=== PATIENT | male | born 1930 | race Caucasian/White ===

== ENCOUNTER 2021-06-12 10:05 | Inpatient (IN) ==
[2021-06-12] MEDS ORDERED: LIDOCAINE 2% URO-JET 10 ML JEL.PF.APP UR ONE (10:29)
[2021-06-12] MEDS ORDERED: 0.9 % SODIUM CHLORIDE 1,000 ML IV ONE (10:29)
--- NOTE | 2021-06-12 11:22 | XRay Report ---
INDICATION: weak TECHNIQUE: AP portable semiupright chest x-ray COMPARISON: None FINDINGS: Lungs:Bilateral pulmonary parenchymal infiltrates. Focal infiltrates at both lung bases, left worse than right. There is a focal parenchymal density in the right lung apex. Findings are nonspecific but atypical pneumonia including covid pneumonia are likely. Follow-up radiographs recommended. Heart, vascular:No significant cardiomegaly. Pulmonary vascularity is normal. No pulmonary edema or pulmonary congestion Mediastinum, lauren:No mediastinal widening. No hilar mass Pleura:No pleural fluid. No pleural-based mass or calcification Skeletal:Negative. IMPRESSION: Bilateral pulmonary parenchymal infiltrates consistent with pneumonia. Covid pneumonia is possible Interpreted and Authenticated by: Marquis Iglesias 06/12/21
[2021-06-12 11:29] LABS: ALT/SGPT 10 U/L (<40); AST/SGOT 15 U/L (<40); Albumin 4.1 gm/dL (3.2-5.2); Albumin/Globulin Ratio 1.4 (1.0-2.3); Alkaline Phosphatase 91 U/L (39-117); Bilirubin,Total 0.9 mg/dL (0.1-1.0); Blood Urea Nitrogen 18 mg/dL (8-23); Calcium 9.1 mg/dL (8.6-10.4); Carbon Dioxide 22 mmol/L (22-30); Chloride 105 mmol/L (96-108); Globulin 2.9 gm/dL (2.2-3.7); Glomerular Filtration Rate 44; Glucose 119 mg/dL (70-105)
[2021-06-12 12:22] LABS: Basophils # (Auto) 0.07 K/mcL (0.00-0.30); Basophils % (Auto) 0.8 % (0.0-2.0); Eosinophils # (Auto) 0.29 K/mcL (0.00-0.70); Eosinophils % (Auto) 3.5 % (0.0-7.0); Hematocrit 49.2 % (40.1-51.0); Hemoglobin 17.6 g/dL (13.7-17.5); Lymphocytes # (Auto) 2.65 K/mcL (1.50-4.80); Lymphocytes % (Auto) 31.9 % (15.5-49.0); Mean Cell Volume 92.7 fL (80.0-100.0); Mean Corpuscular HGB Conc 35.8 g/dL (31.0-36.0); Mean Platelet Volume 10.2 fL (7.4-10.4); Monocytes # (Auto) 0.59 K/mcL (0.10-0.90); Monocytes % (Auto) 7.1 % (1.0-12.0); Neutrophils % (Auto) 56.7 % (38.0-78.0); Platelet Count 253 K/mcL (140-440); RBC 5.31 M/mcL (4.63-6.08); Red Cell Distribution Width 13.2 % (11.5-14.5); WBC 8.3 K/mcL (4.5-11.0)
[2021-06-12 12:37] LABS: Appearance,Urine CLEAR (Clear); Bilirubin,Urine Negative (Negative); Color,Urine YELLOW; Culture Indicated,Urine yes; Glucose,Urine (UA) Negative (Negative); Ketones,Urine 5 mg/dL (Negative); Leukocyte Esterase,Urine 25 /uL (Negative); Mucus,Urine FEW /hpf; Nitrate,Urine Negative (Negative); Protein,Urine Negative (Negative); Specific Gravity,Urine 1.017 (1.000-1.035); Urine Blood Negative (Negative); Urine RBC 4 /hpf (0-3); Urine Squamous Epithelial Cell < 1 /hpf (0-4); Urine Transitional Epi Cells < 1 /hpf (0-2); Urine WBC 18 /hpf (0-4); Urobilinogen,Urine Negative
[2021-06-12] MEDS ORDERED: cefTRIAXone 1 GM VIAL IV ONE (12:47)
[2021-06-12] MEDS ORDERED: DOXYCYCLINE 100 MG in DEXTROSE 5% IN WATER 100 ML IV ONE (13:00)
--- NOTE | 2021-06-12 14:12 | Internal Med History&Physical ---
HPI History of Present Illness Patient information: Note initiated : 06/12/21 at 2:07 pm Service Date, if different from initiated Date: [] Patient: Raymond Darnell a 89 y/o M admitted on for UTI w/ increased weakness. Chief Complaint: [weakness] History of present illness: Mr. 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 noticed patient to have cloudy urine on June 08, 2021. As a result, she brought him to PCP office where he was being diagnosed with urinary tract infections and was being discharged home with prescriptions of ciprofloxacin. Yesterday patient's developed general body weakness to the point that he was not able to ambulate and become bedbound. Earlier this morning he also developed some nonproductive cough. also noticed that patient developed episode of tonic-clonic seizures last for about 15 seconds this weekend. He denies any shortness of breath otherwise. He also had fever but denies any shaking chills or diaphoresis. There is no GI symptoms such as nausea, vomiting, diarrhea, or constipation's. Patient is currently denies any dysuria or change in urinary frequency or urgency. Vital signs at ED presentations are within normal limits. Labs significant for lack of leukocytosis with WBC 8.3. Lactic acid 1.0. Urinalysis suggest the presence of urinary tract infections. Chest x-ray showing bilateral pulmonary parenchymal infiltrates consistent with pneumonia. Constitutional Constitutional: Present fever(s) and weakness; Absent chills, excessive sweating and fatigue EENT Eyes: Absent blurry vision, change in vision, loss of vision and other visual disturbances Ears: Absent decreased hearing and tinnitus Nose, mouth and throat: Absent abnormal hearing, dry mouth, headache(s), nasal congestion and sore throat Cardiovascular Cardiovascular: Absent chest pain, chest pain at rest, edema, irregular heart rh ythm and palpatations Respiratory Respiratory: Present cough; Absent dyspnea and wheezing Gastrointestinal Gastrointestinal: Absent abdominal pain, constipation, diarrhea, nausea and vomiting Musculoskeletal Musculoskeletal: Absent back pain, deformity, limited range of motion, muscle cramps, muscle weakness and numbness Integumentary Integumentary: Absent lesions, rash and wounds Neurological Neurological: Absent focal weakness, headache(s) and numbness Additional comments: seizure Psychiatric Psychiatric: Absent anxiety, depression and hallucinations PFSH PFSH All Active Problems (Updated 06/12/21 @ 14:11 by Dion Mcfadden MD) Community acquired pneumonia (Acute) UTI (urinary tract infection) (Acute) Seizure (Acute) SJS-TEN overlap syndrome (Acute) YESY (acute kidney injury) (Acute) Weakness (Acute) Chronic anticoagulation (Chronic) Grand mal seizure (Acute) Brain lesion (Acute) Brain edema (Acute) CKD (chronic kidney disease) stage 3, GFR 30-59 ml/min (Chronic) TIA (transient ischemic attack) (Acute) Leukocytosis (Acute) Polycythemia (Acute) Tachycardia (Acute) Hypertensive renal disease (Chronic ~1960) Hyponatremia (Chronic) Chronic kidney disease, stage III (moderate) (Chronic) Vertigo (Acute) History of skin cancer (Acute) Screening for colon cancer (Acute) Rhinitis, allergic (Acute) Renal insufficiency (Acute) Memory loss (Acute) Knee pain (Acute) Hypertension, essential (Chronic) Hypercholesterolemia (Acute) GERD (gastroesophageal reflux disease) (Acute) Gastritis, acute (Acute) BPH (benign prostatic hypertrophy) with urinary obstruction (Acute) Anxiety disorder (Acute) Medical History (Updated 06/12/21 @ 14:11 by Dion Mcfadden MD) Anxiety disorder BPH (benign prostatic hypertrophy) with urinary obstruction Chronic anticoagulation Eliquis; due to DVT and PE. Chronic kidney disease, stage III (moderate) Gastritis, acute GERD (gastroesophageal reflux disease) History of skin cancer Left face Hypercholesterolemia Hypertension, essential Goal BP 130/80 Hypertensive renal disease (~1960) Goal BP 130/80 Hyponatremia mild hyponatremia while on HCTZ Na at 134 improved to 140 Will monitor for now Knee pain Right Leukocytosis 05/31/2015 - Dr. Zavala Memory loss Polycythemia Renal insufficiency Rhinitis, allergic Tachycardia 05/31/2015 - Dr. Zavala TIA (transient ischemic attack) Vertigo Surgical History (Updated 06/02/21 @ 16:00 by Karen Malin) History of colonoscopy (03/13/14) [facility] History of hernia repair Hernia repair left and right many years ago History of knee replacement History of prostate surgery History of tonsillectomy Family History (Updated 06/02/21 @ 16:02 by Karen Malin) Mother , at 97 Family history of hypertension Father , 97 Pneumonia Sister Family history of hypertension Social History (Updated 06/02/21 @ 16:02 by Karen Malin) marital status: occupational status: retired smoking status: Never smoker alcohol intake frequency: does not drink substance use type: does not use MEDS/ALLERGIES Home Medications and Allergies Home Medications Medication Instructions Recorded Confirmed Type amlodipine 10 mg tablet 10 mg PO QDAY 02/15/16 06/08/21 History tamsulosin 0.4 mg capsule 0.4 mg PO Q24H 05/17/16 06/08/21 History B-complex with vitamin C 1 tab-cap PO QDAY 08/09/16 06/08/21 History apixaban 2.5 mg tablet 2.5 mg PO BID tab 11/06/16 06/08/21 History cholecalciferol (vitamin D3) 25 1,000 unit PO QDAY cap 11/06/16 06/08/21 History mcg (1,000 unit) capsule magnesium oxide 400 mg (241.3 mg 400 mg PO QDAY 11/06/16 06/08/21 History magnesium) tablet ketoconazole 2 % topical cream 1 applic TOPICAL QDAY PRN 12/06/17 06/08/21 History lorazepam 0.5 mg tablet 0.5 mg PO QHS PRN 05/01/19 06/08/21 History melatonin 10 mg capsule 10 mg PO HS PRN 07/29/19 06/08/21 History paroxetine HCl 10 mg tablet 10 mg PO QDAY 07/29/19 06/08/21 History famotidine 20 mg tablet 20 mg PO BID tab 03/29/21 06/08/21 History fexofenadine 180 mg tablet 180 mg PO Q24H 03/29/21 06/08/21 History metoprolol tartrate 50 mg tablet See Rx Instructions .ROUTE 03/29/21 06/08/21 History .COMPLEX tab ciprofloxacin HCl 500 mg tablet 500 mg PO BID 5 Days #10 tab 06/08/21 06/08/21 Rx Allergies Allergy/AdvReac Type Severity Reaction Status Date / Time carbamazepine Allergy Severe Seizure Verified 06/12/21 10:07 lacosamide [From Vimpat] Allergy Severe Seizure Verified 06/12/21 10:07 levetiracetam Allergy Severe Seizure Verified 06/12/21 10:07 sulfamethoxazole Allergy Severe Rogelio Verified 06/12/21 10:07 [From Bactrim] Diego Syndrome trimethoprim [From Bactrim] Allergy Severe Rogelio Verified 06/12/21 10:07 Diego Syndrome Penicillins Allergy Unknown Unknown Verified 06/12/21 10:07 lamotrigine AdvReac Severe SJ Syndrome Verified 06/12/21 10:07 EXAM Constitutional Vitals: Temp Pulse Resp BP Pulse Ox 37.2 C 62 16 148/73 96 06/12/21 10:07 06/12/21 12:48 06/12/21 13:41 06/12/21 13:41 06/12/21 13:41 DATA Data Completed and Pending Labs: Labs from last 24 hours 06/12/21 06/12/21 06/12/21 11:28 11:08 10:40 WBC RBC Hgb Hct MCV MCH MCHC RDW Plt Count MPV Neut % (Auto) Lymph % (Auto) [place] % (Auto) Eos % (Auto) Baso % (Auto) Lymph # (Auto) [place] # (Auto) Eos # (Auto) Baso # (Auto) Absolute Neutrophils VBG Lactic Acid 1.0 Sodium Potassium Chloride Carbon Dioxide Anion Gap BUN Creatinine GFR Calculation Glucose Calcium Total Bilirubin AST ALT Alkaline Phosphatase Troponin T Total Protein Albumin Globulin Albumin/Globulin Ratio Procalcitonin Pending Urine Color Yellow Urine Appearance Clear Urine pH 5.0 Ur Specific Carm[place] 1.017 Urine Protein Negative Urine Glucose (UA) Negative Urine Ketones 5 A Urine Occult Blood Negative Urine Nitrate Negative Urine Bilirubin Negative Urine Urobilinogen Negative Ur Leukocyte Esterase 25 A Urine RBC 4 H Urine WBC 18 H Ur Squamous Epith Cells < 1 Ur Transition Epith Cell < 1 Urine Bacteria None Urine Mucus Few A Ur Culture Indicated? yes 06/12/21 06/12/21 06/12/21 10:40 10:40 10:40 WBC 8.3 RBC 5.31 Hgb 17.6 H Hct 49.2 MCV 92.7 MCH 33.1 MCHC 35.8 RDW 13.2 Plt Count 253 MPV 10.2 Neut % (Auto) 56.7 Lymph % (Auto) 31.9 [place] % (Auto) 7.1 Eos % (Auto) 3.5 Baso % (Auto) 0.8 Lymph # (Auto) 2.65 [place] # (Auto) 0.59 Eos # (Auto) 0.29 Baso # (Auto) 0.07 Absolute Neutrophils 4.71 VBG Lactic Acid Sodium 143 Potassium 3.7 Chloride 105 Carbon Dioxide 22 Anion Gap 16.0 BUN 18 Creatinine 1.4 H GFR Calculation 44 Glucose 119 H Calcium 9.1 Total Bilirubin 0.9 AST 15 ALT 10 Alkaline Phosphatase 91 Troponin T < 0.01 Total Protein 7.0 Albumin 4.1 Globulin 2.9 Albumin/Globulin Ratio 1.4 Procalcitonin Urine Color Urine Appearance Urine pH Ur Specific [place] Urine Protein Urine Glucose (UA) Urine Ketones Urine Occult Blood Urine Nitrate Urine Bilirubin Urine Urobilinogen Ur Leukocyte Esterase Urine RBC Urine WBC Ur Squamous Epith Cells Ur Transition Epith Cell Urine Bacteria Urine Mucus Ur Culture Indicated? A/P Assessment and plan (1) Weakness: Status: Acute (2) Chronic anticoagulation: Status: Chronic Comment: Eliquis; due to DVT and PE. (3) CKD (chronic kidney disease) stage 3, GFR 30-59 ml/min: Status: Chronic Comment: Combo of HTN and vascular disease most likely Qualifiers: Chronic kidney disease stage 3 subtype: stage 3a (GFR 45-59) Qualified Code(s): N18.31 - Chronic kidney disease, stage 3a (4) Hypertension, essential: Status: Chronic Comment: Goal BP 130/80 (5) GERD (gastroesophageal reflux disease): Status: Acute (6) Anxiety disorder: Status: Acute (7) BPH (benign prostatic hypertrophy) with urinary obstruction: Status: Acute (8) Seizure: Status: Acute (9) UTI (urinary tract infection): Status: Acute (10) Community acquired pneumonia: Status: Acute Narrative A/P Narrative: Assessment and plan: 1. General body weakness secondary to community-acquired pneumonia and urinary tract infections: Observation MedSurg Okay to saline lock Serial lactic acid Procalcitonin Blood culture Urine culture CBC with auto differential in the morning to trend WBC Rocephin Zithromax Tylenol as needed fever Robitussin-DM as needed cough DuoNeb nebulizer as needed wheezing Physical therapy evaluation and treatment Occupational Therapy evaluation and treatment #2 history of seizure disorder: Right does not want patient on any long-term antiepileptic therapy at this moment Ativan IV as needed seizure activities Seizure precaution Treat any seizure triggers such as infections, see #1 #3 essential hypertension: Currently normotensive Continue home regimen of oral antihypertensive including amlodipine and beta- jacqui #4 history of chronic kidney disease stage III: Current serum creatinine level at baseline Okay to saline lock CMP in the morning to trend kidney functions 5. Anxiety disorder: Continue paroxetine Continue home regiment of oral Ativan at night as needed for anxiety #6 BPH: Continue Flomax #7 on chronic anticoagulation therapy secondary to history of DVT and PE: Continue Eliquis 8. GERD: Continue famotidine GI prophylaxis: Continue famotidine DVT prophylaxis: Eliquis CODE STATUS: Full code Prognosis: Stable Dispositions: Observation MedSurg Time Spent With Patient Time: Total time spent is greater than 50% in coordination of care (as documented) at patient's floor/unit and/or counseling patient: Total time spent with greater than 50% in coordination of care (as documented) at patient's floor/unit and/or counseling patient:: Greater than 35 minutes
--- NOTE | 2021-06-12 14:34 | Emergency Department Note ---
HPI General Chief complaint: Weakness Stated complaint: UTI w/ increased weakness Time Seen by Provider: 06/12/21 10:26 Source: family and EMS Mode of arrival: EMS Limitations: no limitations History of Present Illness HPI Narrative: Narrative: 89-year-old male with history of seizures, meningioma, chronic kidney disease, hypertension, hyperlipidemia presents from home with family for evaluation of suspected urinary tract infection with progressive weakness over the past 4 days. He started ciprofloxacin 4 days ago for this after having appearance of concentrated and proteinaceous urine which was sent for urinalysis by his primary care physician. They do not have culture results. They deny any fever or chills. He denies headache or dizziness. He denies chest pain or pressure or shortness of breath. He denies abdominal pain nausea or flank pain. He denies dysuria. He has had some mild nonproductive cough which started today Related Data Home Medications Medication Instructions Recorded Confirmed amlodipine 10 mg tablet 10 mg PO QDAY 02/15/16 06/08/21 tamsulosin 0.4 mg capsule 0.4 mg PO Q24H 05/17/16 06/08/21 B-complex with vitamin C 1 tab-cap PO QDAY 08/09/16 06/08/21 apixaban 2.5 mg tablet 2.5 mg PO BID tab 11/06/16 06/08/21 cholecalciferol (vitamin D3) 25 1,000 unit PO QDAY cap 11/06/16 06/08/21 mcg (1,000 unit) capsule magnesium oxide 400 mg (241.3 mg 400 mg PO QDAY 11/06/16 06/08/21 magnesium) tablet ketoconazole 2 % topical cream 1 applic TOPICAL QDAY PRN 12/06/17 06/08/21 lorazepam 0.5 mg tablet 0.5 mg PO QHS PRN 05/01/19 06/08/21 melatonin 10 mg capsule 10 mg PO HS PRN 07/29/19 06/08/21 paroxetine HCl 10 mg tablet 10 mg PO QDAY 07/29/19 06/08/21 famotidine 20 mg tablet 20 mg PO BID tab 03/29/21 06/08/21 fexofenadine 180 mg tablet 180 mg PO Q24H 03/29/21 06/08/21 metoprolol tartrate 50 mg tablet See Rx Instructions .ROUTE 03/29/21 06/08/21 .COMPLEX tab Previous Rx's Medication Instructions Recorded ciprofloxacin HCl 500 mg tablet 500 mg PO BID 5 Days #10 tab 06/08/21 Allergies Allergy/AdvReac Type Severity Reaction Status Date / Time carbamazepine Allergy Severe Seizure Verified 06/12/21 10:07 lacosamide [From Vimpat] Allergy Severe Seizure Verified 06/12/21 10:07 levetiracetam Allergy Severe Seizure Verified 06/12/21 10:07 sulfamethoxazole Allergy Severe Rogelio Verified 06/12/21 10:07 [From Bactrim] Diego Syndrome trimethoprim [From Bactrim] Allergy Severe Rogelio Verified 06/12/21 10:07 Diego Syndrome Penicillins Allergy Unknown Unknown Verified 06/12/21 10:07 lamotrigine AdvReac Severe SJ Syndrome Verified 06/12/21 10:07 Review of Systems ROS ROS Narrative: Narrative: All systems ED: reviewed and negative except as stated. PFSH Narrative Patient History Narrative: Narrative: Medical/Surgical/Family History All Active Problems (Updated 06/12/21 @ 14:33 by Félix Andre DO) Weakness (Acute) Community acquired pneumonia (Acute) UTI (urinary tract infection) (Acute) Seizure (Acute) SJS-TEN overlap syndrome (Acute) YESY (acute kidney injury) (Acute) Weakness (Acute) Chronic anticoagulation (Chronic) Grand mal seizure (Acute) Brain lesion (Acute) Brain edema (Acute) CKD (chronic kidney disease) stage 3, GFR 30-59 ml/min (Chronic) TIA (transient ischemic attack) (Acute) Leukocytosis (Acute) Polycythemia (Acute) Tachycardia (Acute) Hypertensive renal disease (Chronic ~1960) Hyponatremia (Chronic) Chronic kidney disease, stage III (moderate) (Chronic) Vertigo (Acute) History of skin cancer (Acute) Screening for colon cancer (Acute) Rhinitis, allergic (Acute) Renal insufficiency (Acute) Memory loss (Acute) Knee pain (Acute) Hypertension, essential (Chronic) Hypercholesterolemia (Acute) GERD (gastroesophageal reflux disease) (Acute) Gastritis, acute (Acute) BPH (benign prostatic hypertrophy) with urinary obstruction (Acute) Anxiety disorder (Acute) Medical History Anxiety disorder BPH (benign prostatic hypertrophy) with urinary obstruction Chronic anticoagulation Eliquis; due to DVT and PE. Chronic kidney disease, stage III (moderate) Gastritis, acute GERD (gastroesophageal reflux disease) History of skin cancer Left face Hypercholesterolemia Hypertension, essential Goal BP 130/80 Hypertensive renal disease (~1960) Goal BP 130/80 Hyponatremia mild hyponatremia while on HCTZ Na at 134 improved to 140 Will monitor for now Knee pain Right Leukocytosis 05/31/2015 - Dr. Zavala Memory loss Polycythemia Renal insufficiency Rhinitis, allergic Tachycardia 05/31/2015 - Dr. Zavala TIA (transient ischemic attack) Vertigo Surgical History History of colonoscopy (03/13/14) HP History of hernia repair Hernia repair left and right many years ago History of knee replacement History of prostate surgery History of tonsillectomy Family History Mother , at 97 Family history of hypertension Father , 97 Pneumonia Sister Family history of hypertension Social History Smoking Status: Never smoker Alcohol Intake Frequency: does not drink Substance Use: does not use Exam Narrative Narrative: Narrative: General Limitations: no limitations General appearance: Present alert, in no apparent distress and sleepy; Absent lethargic Head Head: Present atraumatic and normocephalic Eye Eye: Present normal appearance and EOMI ENT ENT: Present mucous membranes dry; Absent nasal congestion Neck Neck: Present normal inspection and full ROM Chest Chest: Present normal inspection and symmetric chest wall rise Respiratory Respiratory: Present normal lung sounds bilaterally Cardiovascular Cardiovascular: Present regular rate and normal rhythm Adbominal Abdominal: Present soft; Absent tenderness Extremities Extremities: Present normal inspection and full ROM Neurological Neurological: Present alert, oriented X3 and normal gait Psychiatric Psychiatric: Present normal affect and normal mood Skin Skin: Present warm (WNL) and dry Course Vital Signs Vital signs: Vital Signs Pulse Rate 59 L 06/12/21 10:05 Blood Pressure 142/64 06/12/21 10:05 Pulse Oximetry (%) 95 06/12/21 10:05 Temperature 98.9 F 06/12/21 10:07 Pulse Rate 62 06/12/21 12:48 Respiratory Rate 16 06/12/21 13:41 Blood Pressure 148/73 06/12/21 13:41 Pulse Oximetry (%) 96 06/12/21 13:41 MDM MDM Narrative Medical decision making narrative: Narrative: Patient with generalized weakness, on Cipro for the past 4 days, presumed infectious cause from possible urinary tract infection. Culture was available and reviewed did not show definite acute infection. He has not had other definite urinary symptoms. His main complaint is profound weakness significantly different from his baseline when he normally walks with assistance. He has chest x-ray evidence of possible pneumonia. This is associated with cough today. Likely this is partially treated infection and I believe he will benefit from observation for continued fluids and monitoring, transition to p.o. antibiotic, physical therapy evaluation. He does not have any focal deficits at this time concerning for stroke. His NIH stroke scale is 0, he does have mildly slurred speech but his family member reports that this is baseline. He does not have lab abnormalities or vital signs concerning for sepsis Lab Data Result diagrams: 06/12/21 10:40 06/12/21 10:40 Labs: Lab Results 06/12/21 06/12/21 06/12/21 Range/Units 10:40 10:40 10:40 WBC 8.3 (4.5-11.0) K/mcL RBC 5.31 (4.63-6.08) M/mcL Hgb 17.6 H (13.7-17.5) g/dL Hct 49.2 (40.1-51.0) % MCV 92.7 (80.0-100.0) fL MCH 33.1 (26.0-34.0) pg MCHC 35.8 (31.0-36.0) g/dL RDW 13.2 (11.5-14.5) % Plt Count 253 (140-440) K/mcL MPV 10.2 (7.4-10.4) fL Neut % (Auto) 56.7 (38.0-78.0) % Lymph % (Auto) 31.9 (15.5-49.0) % Bent % (Auto) 7.1 (1.0-12.0) % Eos % (Auto) 3.5 (0.0-7.0) % Baso % (Auto) 0.8 (0.0-2.0) % Lymph # (Auto) 2.65 (1.50-4.80) K/mcL Bent # (Auto) 0.59 (0.10-0.90) K/mcL Eos # (Auto) 0.29 (0.00-0.70) K/mcL Baso # (Auto) 0.07 (0.00-0.30) K/mcL Absolute Neutrophils 4.71 (1.80-8.00) K/mcL VBG Lactic Acid (0.5-2.0) mmol/L Sodium 143 (133-145) mmol/L Potassium 3.7 (3.3-5.1) mmol/L Chloride 105 (96-108) mmol/L Carbon Dioxide 22 (22-30) mmol/L Anion Gap 16.0 (8.0-16.0) BUN 18 (8-23) mg/dL Creatinine 1.4 H (0.7-1.2) mg/dL GFR Calculation 44 Glucose 119 H (70-105) mg/dL Calcium 9.1 (8.6-10.4) mg/dL Total Bilirubin 0.9 (0.1-1.0) mg/dL AST 15 (<40) U/L ALT 10 (<40) U/L Alkaline Phosphatase 91 (39-117) U/L Troponin T < 0.01 (<0.03) ng/mL Total Protein 7.0 (5.9-8.4) gm/dL Albumin 4.1 (3.2-5.2) gm/dL Globulin 2.9 (2.2-3.7) gm/dL Albumin/Globulin Ratio 1.4 (1.0-2.3) Procalcitonin (<0.10) ng/mL Urine Color Urine Appearance (Clear) Urine pH (5.0-9.0) Ur Specific [place] (1.000-1.035) Urine Protein (Negative) mg/dL Urine Glucose (UA) (Negative) mg/dL Urine Ketones (Negative) mg/dL Urine Occult Blood (Negative) mg/dL Urine Nitrate (Negative) Urine Bilirubin (Negative) mg/dL Urine Urobilinogen mg/dL Ur Leukocyte Esterase (Negative) /uL Urine RBC (0-3) /hpf Urine WBC (0-4) /hpf Ur Squamous Epith Cells (0-4) /hpf Ur Transition Epith Cell (0-2) /hpf Urine Bacteria (0) /hpf Urine Mucus (None) /hpf Ur Culture Indicated? 06/12/21 06/12/21 06/12/21 Range/Units 10:40 11:08 11:28 WBC (4.5-11.0) K/mcL RBC (4.63-6.08) M/mcL Hgb (13.7-17.5) g/dL Hct (40.1-51.0) % MCV (80.0-100.0) fL MCH (26.0-34.0) pg MCHC (31.0-36.0) g/dL RDW (11.5-14.5) % Plt Count (140-440) K/mcL MPV (7.4-10.4) fL Neut % (Auto) (38.0-78.0) % Lymph % (Auto) (15.5-49.0) % Bent % (Auto) (1.0-12.0) % Eos % (Auto) (0.0-7.0) % Baso % (Auto) (0.0-2.0) % Lymph # (Auto) (1.50-4.80) K/mcL Bent # (Auto) (0.10-0.90) K/mcL Eos # (Auto) (0.00-0.70) K/mcL Baso # (Auto) (0.00-0.30) K/mcL Absolute Neutrophils (1.80-8.00) K/mcL VBG Lactic Acid 1.0 (0.5-2.0) mmol/L Sodium (133-145) mmol/L Potassium (3.3-5.1) mmol/L Chloride (96-108) mmol/L Carbon Dioxide (22-30) mmol/L Anion Gap (8.0-16.0) BUN (8-23) mg/dL Creatinine (0.7-1.2) mg/dL GFR Calculation Glucose (70-105) mg/dL Calcium (8.6-10.4) mg/dL Total Bilirubin (0.1-1.0) mg/dL AST (<40) U/L ALT (<40) U/L Alkaline Phosphatase (39-117) U/L Troponin T (<0.03) ng/mL Total Protein (5.9-8.4) gm/dL Albumin (3.2-5.2) gm/dL Globulin (2.2-3.7) gm/dL Albumin/Globulin Ratio (1.0-2.3) Procalcitonin 0.08 (<0.10) ng/mL Urine Color Yellow Urine Appearance Clear (Clear) Urine pH 5.0 (5.0-9.0) Ur Specific [place] 1.017 (1.000-1.035) Urine Protein Negative (Negative) mg/dL Urine Glucose (UA) Negative (Negative) mg/dL Urine Ketones 5 A (Negative) mg/dL Urine Occult Blood Negative (Negative) mg/dL Urine Nitrate Negative (Negative) Urine Bilirubin Negative (Negative) mg/dL Urine Urobilinogen Negative mg/dL Ur Leukocyte Esterase 25 A (Negative) /uL Urine RBC 4 H (0-3) /hpf Urine WBC 18 H (0-4) /hpf Ur Squamous Epith Cells < 1 (0-4) /hpf Ur Transition Epith Cell < 1 (0-2) /hpf Urine Bacteria None (0) /hpf Urine Mucus Few A (None) /hpf Ur Culture Indicated? yes ED POC Tests ED POC Tests: LYSSA - SARS Antigen Negative EKG Data EKG #1: EKG attestation: Yes I reviewed and interpreted this EKG. EKG results narrative: Sinus rhythm at a rate of 60. Normal axis. QTC 425. No acute ST-T changes. Normal EKG. Discharge Plan Patient/Caregiver Discharge Instructions Pt seen by SUPERINTENDENT QUARRY/PA only: No Clinical Impression: Weakness, Community acquired pneumonia, UTI (urinary tract infection) Patient Disposition: Xfer As Inpt ([facility]) Follow up with: Raffi Randolph MD [Primary Care Provider] - Prescriptions: No Action ciprofloxacin HCl 500 mg tablet 500 mg PO BID 5 Days Qty: 10 RF: 0 amlodipine 10 mg tablet 10 mg PO QDAY RF: 0 tamsulosin [Flomax] 0.4 mg capsule,extended release 24hr 0.4 mg PO Q24H RF: 0 B-complex with vitamin C capsule 1 tab-cap PO QDAY RF: 0 apixaban [Eliquis] 2.5 mg tablet 2.5 mg PO BID RF: 0 cholecalciferol (vitamin D3) 1,000 unit capsule 1,000 unit PO QDAY RF: 0 magnesium oxide 400 mg tablet 400 mg PO QDAY RF: 0 ketoconazole 2 % cream 1 applic TOPICAL QDAY PRNRF: 0 lorazepam 0.5 mg tablet 0.5 mg PO QHS PRNRF: 0 metoprolol tartrate 50 mg tablet See Rx Instructions .ROUTE .COMPLEX RF: 0 melatonin 10 mg capsule 10 mg PO HS PRNRF: 0 paroxetine HCl 10 mg tablet 10 mg PO QDAY RF: 0 famotidine 20 mg tablet 20 mg PO BID RF: 0 fexofenadine [Elly Allergy] 180 mg tablet 180 mg PO Q24H RF: 0
[2021-06-12] MEDS ORDERED: cefTRIAXone 1 GM in DEXTROSE 5% IN WATER 50 ML IV SCH (15:14)
[2021-06-12] MEDS ORDERED: FEXOFENADINE 180 MG TABLET PO SCH (15:14)
[2021-06-12] MEDS ORDERED: ONDANSETRON 4 MG/2 ML VIAL IV PRN (15:14)
[2021-06-12] MEDS ORDERED: TAMSULOSIN 0.4 MG CAPSULE PO SCH (15:14)
[2021-06-12] MEDS ORDERED: IPRATROPIUM/ALBUTEROL 3 ML AMPUL.NEB NEB PRN (15:14)
[2021-06-12] MEDS ORDERED: guaiFENesin/DEXTROMETHORPHAN ORAL SOL PO PRN (15:14)
[2021-06-12] MEDS ORDERED: KETOCONAZOLE 2% TOP CRM 15GM TUBE TOPICAL PRN (15:14)
[2021-06-12] MEDS ORDERED: LORazepam 2 MG/ML VIAL IV PRN (15:14)
[2021-06-12] MEDS ORDERED: ACETAMINOPHEN 325 MG TABLET PO PRN (15:14)
[2021-06-12] MEDS ORDERED: LORazepam 0.5 MG TABLET PO PRN (15:14)
[2021-06-12] MEDS: 0.9 % SODIUM CHLORIDE 10 ML SYRINGE IV SCH ×2 (15:48→20:40)
[2021-06-12] MEDS: AZITHROMYCIN 500 MG in DEXTROSE 5% IN WATER 250 ML IV SCH (15:48)
[2021-06-12] MEDS: MELATONIN 3 MG TABLET PO PRN (20:38)
[2021-06-12] MEDS: APIXABAN 5 MG TABLET PO SCH (20:39)
[2021-06-12] MEDS: FAMOTIDINE 20 MG TABLET PO SCH (20:39)
[2021-06-12] MEDS: METOPROLOL TARTRATE 25 MG TABLET PO SCH (20:40)
[2021-06-12] MEDS: SENNOSIDES 1 TABLET PO SCH (20:40)
[2021-06-12] MEDS: DOCUSATE SODIUM 100 MG CAPSULE PO SCH (20:40)
[2021-06-13] MEDS: 0.9 % SODIUM CHLORIDE 10 ML SYRINGE IV SCH ×3 (05:24→21:59)
[2021-06-13 07:17] LABS: Basophils # (Auto) 0.06 K/mcL (0.00-0.30); Basophils % (Auto) 0.6 % (0.0-2.0); Eosinophils # (Auto) 0.12 K/mcL (0.00-0.70); Eosinophils % (Auto) 1.1 % (0.0-7.0); Hematocrit 51.8 % (40.1-51.0); Hemoglobin 17.9 g/dL (13.7-17.5); Lymphocytes # (Auto) 2.35 K/mcL (1.50-4.80); Lymphocytes % (Auto) 21.6 % (15.5-49.0); Mean Cell Volume 92.7 fL (80.0-100.0); Mean Corpuscular HGB Conc 34.6 g/dL (31.0-36.0); Mean Platelet Volume 10.1 fL (7.4-10.4); Monocytes # (Auto) 0.62 K/mcL (0.10-0.90); Monocytes % (Auto) 5.7 % (1.0-12.0); Platelet Count 261 K/mcL (140-440); RBC 5.59 M/mcL (4.63-6.08); Red Cell Distribution Width 12.8 % (11.5-14.5); WBC 10.9 K/mcL (4.5-11.0)
[2021-06-13 07:48] LABS: ALT/SGPT 9 U/L (<40); AST/SGOT 17 U/L (<40); Albumin/Globulin Ratio 1.3 (1.0-2.3); Alkaline Phosphatase 92 U/L (39-117); Bilirubin,Total 0.7 mg/dL (0.1-1.0); Blood Urea Nitrogen 13 mg/dL (8-23); Calcium 9.4 mg/dL (8.6-10.4); Carbon Dioxide 20 mmol/L (22-30); Chloride 105 mmol/L (96-108); Globulin 3.1 gm/dL (2.2-3.7); Glomerular Filtration Rate 59; Glucose 154 mg/dL (70-105)
[2021-06-13] MEDS: VITAMIN B COMPLEX 1 CAPSULE PO SCH ×2 (08:00→09:59)
[2021-06-13] MEDS: cefTRIAXone 1 GM VIAL IV SCH (08:00)
[2021-06-13] MEDS: METOPROLOL TARTRATE 50 MG TABLET PO SCH (08:01)
[2021-06-13] MEDS: amLODIPine 10 MG TABLET PO SCH (08:01)
[2021-06-13] MEDS: PARoxetine 20 MG TABLET PO SCH (08:01)
[2021-06-13] MEDS: APIXABAN 5 MG TABLET PO SCH ×2 (08:02→21:57)
[2021-06-13] MEDS: FAMOTIDINE 20 MG TABLET PO SCH ×2 (08:03→21:58)
--- NOTE | 2021-06-13 09:09 | EKG ---
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
[2021-06-13] MEDS: MAGNESIUM OXIDE 400 MG TABLET PO SCH (09:59)
[2021-06-13] MEDS: DOCUSATE SODIUM 100 MG CAPSULE PO SCH ×2 (09:59→21:59)
[2021-06-13] MEDS: AZITHROMYCIN 500 MG in DEXTROSE 5% IN WATER 250 ML IV SCH (10:21)
--- NOTE | 2021-06-13 11:21 | Internal Med Progress Note ---
SUBJECTIVE Subjective Patient information: Note initiated : 06/13/21 at 11:16 am Service Date, if different from initiated Date: [] Patient: Raymond Darnell 89 y/o M admitted on 06/12/21 for UTI w/ increased weakness. Chief Complaint: [UTI, pneumonia, weakness] Interval history: History of present illness: Mr. 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 noticed patient to have cloudy urine on June 08, 2021. As a result, she brought him to PCP office where he was being diagnosed with urinary tract infections and was being discharged home with prescriptions of ciprofloxacin. Yesterday patient's developed general body weakness to the point that he was not able to ambulate and become bedbound. Earlier this morning he also developed some nonproductive cough. also noticed that patient developed episode of tonic-clonic seizures last for about 15 seconds this weekend. He denies any shortness of breath otherwise. He also had fever but denies any shaking chills or diaphoresis. There is no GI symptoms such as nausea, vomiting, diarrhea, or constipation's. Patient is currently denies any dysuria or change in urinary frequency or urgency. Vital signs at ED presentations are within normal limits. Labs significant for lack of leukocytosis with WBC 8.3. Lactic acid 1.0. Urinalysis suggest the presence of urinary tract infections. Chest x-ray showing bilateral pulmonary parenchymal infiltrates consistent with pneumonia. 06/13: Afebrile overnight. Tolerating room air. Been ambulating with walker with physical therapist. Blood and urine cultures no growth to date. Mild SOB. c/o nonproductive cough. Denies fever or chills. No seizures activities. Denies urinary symptoms such as dysuria. Constitutional Vitals: Vital Signs Temp Pulse Resp BP Pulse Ox 36.7 C 87 22 159/81 91 06/13/21 08:00 06/13/21 08:00 06/13/21 08:00 06/13/21 08:00 06/13/21 08:00 Period Temp Pulse Resp BP Sys/Gale Pulse Ox Last 24 Hr 36.3 C-36.7 C 60-92 12- 126-159/47-90 91-96 Intake and Output 06/12/21 06/13/21 06/13/21 21:59 05:59 13:59 Intake Total 250 100 Output Total 2 Balance 250 98 Weight 75.041 kg Intake & Output: Intake & Output 06/12/21 06/13/21 06/13/21 21:59 05:59 13:59 Intake Total 250 100 Output Total 2 Balance 250 98 Weight 75.041 kg Intake: IV 250 Zithromax 500 mg In Dextrose 5% 250 in Water 250 ml @ 250 mls/hr IV Q24H [facility] Rx#:[id number] Oral 0 100 Output: # of times incontinent of urine 2 Other: Stool Size Large Stool Color Brown Stool Consistency Soft # of times incontinent of 1 Bowels General appearance: cooperative and no acute distress Exam: Frequent passing out dozing off and snoring during interview and examination Head Head exam: Present atraumatic and normocephalic Eye Eye exam: Present EOMI and scleral icterus; Absent PERRL ENT ENT exam: Present mucous membranes moist, normal exam and normal external ear exam Neck Neck exam: Present normal inspection; Absent lymphadenopathy, tenderness and thyromegaly Respiratory Respiratory exam: Absent accessory muscle use, respiratory distress and wheezes Cardiovascular Cardiovascular exam: Present normal rate and rhythm; Absent JVD GI/Abdominal GI/Abdominal exam: Present normal bowel sounds and soft; Absent organomegaly and tenderness Rectal Rectal exam: Present deferred Extremities Exam Extremities exam: Present normal capillary refill; Absent full ROM, normal inspection and tenderness Additional comments: bilateral upper extremities contracture Neurological Exam Neurological exam: Present alert, CN II-XII intact, motor sensory deficit and oriented X3 Psychiatric Psychiatric exam: Present normal affect and normal mood; Absent anxious and depressed Skin Skin exam: Present dry and intact OBJ DATA Labs CBC & Chem 7: 06/13/21 05:57 06/13/21 05:57 Labs: Abnormal Lab Results 06/13/21 06/13/21 06/12/21 05:57 05:57 11:28 Hgb 17.9 H Hct 51.8 H Carbon Dioxide 20 L Creatinine Glucose 154 H Urine Ketones 5 A Ur Leukocyte Esterase 25 A Urine RBC 4 H Urine WBC 18 H Urine Mucus Few A 06/12/21 06/12/21 10:40 10:40 Hgb 17.6 H Hct Carbon Dioxide Creatinine 1.4 H Glucose 119 H Urine Ketones Ur Leukocyte Esterase Urine RBC Urine WBC Urine Mucus Meds: Medications Acetaminophen (Acetaminophen 325 Mg Tablet) 650 mg PO Q6HP PRN; Protocol PRN Reason: Per Pain Protocol/Fever > 101 Albuterol/Ipratropium (Ipratropium/Albuterol 3 Ml Ampul.Neb) 3 ml NEB Q4HRT PRN PRN Reason: Wheezing Amlodipine Besylate (Amlodipine 10 Mg Tablet) 10 mg PO QDAY [facility] Last Admin: 06/13/21 08:01 Dose: 10 mg Documented by: Apixaban (Apixaban 5 Mg Tablet) 2.5 mg PO BID [facility] Last Admin: 06/13/21 08:02 Dose: 2.5 mg Documented by: Ceftriaxone Sodium (Ceftriaxone 1 Gm Vial) 1 gm IV Q24H [facility] Last Admin: 06/13/21 08:00 Dose: 1 gm Documented by: Docusate Sodium (Docusate Sodium 100 Mg Capsule) 100 mg PO BID [facility] Last Admin: 06/13/21 09:59 Dose: Not Given Documented by: Famotidine (Famotidine 20 Mg Tablet) 20 mg PO BID [facility] Last Admin: 06/13/21 08:03 Dose: 20 mg Documented by: Fexofenadine HCl (Fexofenadine 180 Mg Tablet) 180 mg PO Q24H [facility] Last Admin: 06/12/21 15:48 Dose: 180 mg Documented by: Fluorometholone (Fluorometholone 5 Ml Drops.Susp) 1 ml OP BID [facility] Guaifenesin (Guaifenesin/Dextromethorphan Oral Harriett) 10 ml PO Q4HP PRN PRN Reason: Cough Azithromycin 500 mg/ Dextrose 250 mls @ 250 mls/hr IV Q24H [facility]; Protocol Stop: 06/14/21 16:59 Last Admin: 06/13/21 10:21 Dose: 250 mls/hr Documented by: Ketoconazole (Ketoconazole 2% Top Crm 15gm Tube) 1 dose TOPICAL DAILYP PRN PRN Reason: Itching Lorazepam (Lorazepam 0.5 Mg Tablet) 0.5 mg PO QHS PRN PRN Reason: Anxiety Lorazepam (Lorazepam 2 Mg/Ml Vial) 2 mg IV Q1HP PRN PRN Reason: Seizure Activity Magnesium Oxide (Magnesium Oxide 400 Mg Tablet) 400 mg PO QDAY [facility] Last Admin: 06/13/21 09:59 Dose: Not Given Documented by: Melatonin (Melatonin 3 Mg Tablet) 9 mg PO HSP PRN PRN Reason: Sleep Last Admin: 06/12/21 20:38 Dose: 9 mg Documented by: Metoprolol Tartrate (Metoprolol Tartrate 50 Mg Tablet) 50 mg PO DAILY [facility] Last Admin: 06/13/21 08:01 Dose: 50 mg Documented by: Metoprolol Tartrate (Metoprolol Tartrate 25 Mg Tablet) 25 mg PO HS [facility] Last Admin: 06/12/21 20:40 Dose: 25 mg Documented by: Neomycin/Polymyxin/Dexamethasone (Valentino/Polymyx B Sulf/Dexameth 1 Ribbon Oint.Ophth) 1 ribbon OU TID [facility] Ondansetron HCl (Ondansetron 4 Mg/2 Ml Vial) 4 mg IV Q6HP PRN PRN Reason: Nausea And Vomiting Paroxetine HCl (Paroxetine 20 Mg Tablet) 10 mg PO DAILY [facility] Last Admin: 06/13/21 08:01 Dose: 10 mg Documented by: Cyclosporine [ Restasis] 0.05 % Dropperette 1 dose OU Q12H [facility] Pneumococcal Polyvalent Vaccine (Pneumococcal 23-Rani P-Sac Vac 0.5 Ml Syringe) 0.5 ml IM .ONCE ONE Stop: 06/14/21 10:01 Senna (Sennosides 1 Tablet) 2 tab PO [facility] Last Admin: 06/12/21 20:40 Dose: Not Given Documented by: Sodium Chloride (0.9 % Sodium Chloride 10 Ml Syringe) 10 ml IV Q8 [facility] Last Admin: 06/13/21 05:24 Dose: 10 ml Documented by: Tamsulosin HCl (Tamsulosin 0.4 Mg Capsule) 0.4 mg PO Q24H [facility] Last Admin: 06/12/21 15:48 Dose: 0.4 mg Documented by: Vitamin B Complex (Vitamin B Complex 1 Capsule) 1 cap PO DAILY [facility] Last Admin: 06/13/21 09:59 Dose: Not Given Documented by: Vitamin D (Vitamin D3 1,000 Unit Tablet) 1,000 unit PO DAILY [facility] A/P Assessment and plan (1) Weakness: Status: Acute (2) Chronic anticoagulation: Status: Chronic Comment: Eliquis; due to DVT and PE. (3) CKD (chronic kidney disease) stage 3, GFR 30-59 ml/min: Status: Chronic Comment: Combo of HTN and vascular disease most likely Qualifiers: Chronic kidney disease stage 3 subtype: stage 3a (GFR 45-59) Qualified Code(s): N18.31 - Chronic kidney disease, stage 3a (4) Hypertension, essential: Status: Chronic Comment: Goal BP 130/80 (5) GERD (gastroesophageal reflux disease): Status: Acute (6) Anxiety disorder: Status: Acute (7) BPH (benign prostatic hypertrophy) with urinary obstruction: Status: Acute (8) Seizure: Status: Acute (9) UTI (urinary tract infection): Status: Acute (10) Community acquired pneumonia: Status: Acute (11) MICHELLE (obstructive sleep apnea): Status: Acute Narrative A/P Narrative: Assessment and plan: 1. General body weakness secondary to community-acquired pneumonia and urinary tract infections: Observation MedSurg Okay to saline lock Serial lactic acid Procalcitonin Blood culture, no growth to date Urine culture, no growth to date CBC with auto differential in the morning to trend WBC Rocephin Zithromax Tylenol as needed fever Robitussin-DM as needed cough DuoNeb nebulizer as needed wheezing Physical therapy evaluation and treatment Occupational Therapy evaluation and treatment Speech therapy evaluation and treatment #2 history of seizure disorder: Right does not want patient on any long-term antiepileptic therapy at this moment Ativan IV as needed seizure activities Seizure precaution Treat any seizure triggers such as infections, see #1 #3 essential hypertension: Currently normotensive Continue home regimen of oral antihypertensive including amlodipine and beta- jacqui #4 history of chronic kidney disease stage III: Current serum creatinine level at baseline Okay to saline lock CMP in the morning to trend kidney functions 5. Anxiety disorder: Continue paroxetine Continue home regiment of oral Ativan at night as needed for anxiety #6 BPH: Continue Flomax #7 on chronic anticoagulation therapy secondary to history of DVT and PE: Continue Eliquis 8. GERD: Continue famotidine 9. MICHELLE: CPAP at night or while sleeping Need a new outpatient sleep study GI prophylaxis: Continue famotidine DVT prophylaxis: Eliquis CODE STATUS: DNI DNR Prognosis: Stable Dispositions: Observation MedSurg Time Spent With Patient Time: Total time spent is greater than 50% in coordination of care (as documented) at patient's floor/unit and/or counseling patient:
[2021-06-13] MEDS: TAMSULOSIN 0.4 MG CAPSULE PO SCH (14:52)
[2021-06-13] MEDS: FEXOFENADINE 180 MG TABLET PO SCH (14:52)
[2021-06-13] MEDS: NEO/POLYMYX B SULF/DEXAMETH 1 RIBBON OINT.OPHTH OU SCH ×2 (16:49→21:58)
[2021-06-13] MEDS: MELATONIN 3 MG TABLET PO PRN (21:57)
[2021-06-13] MEDS: FLUOROMETHOLONE 5 ML DROPS.SUSP OP SCH (21:58)
[2021-06-13] MEDS: Cyclosporine [Restasis] 0.05 % Dropperette OU SCH (21:58)
[2021-06-13] MEDS: METOPROLOL TARTRATE 25 MG TABLET PO SCH (21:58)
[2021-06-13] MEDS: SENNOSIDES 1 TABLET PO SCH (21:59)
[2021-06-14] MEDS: 0.9 % SODIUM CHLORIDE 10 ML SYRINGE IV SCH ×3 (05:26→20:01)
[2021-06-14 07:45] LABS: Basophils # (Auto) 0.06 K/mcL (0.00-0.30); Basophils % (Auto) 0.7 % (0.0-2.0); Eosinophils # (Auto) 0.38 K/mcL (0.00-0.70); Eosinophils % (Auto) 4.2 % (0.0-7.0); Hematocrit 45.1 % (40.1-51.0); Hemoglobin 15.5 g/dL (13.7-17.5); Lymphocytes # (Auto) 2.95 K/mcL (1.50-4.80); Lymphocytes % (Auto) 32.5 % (15.5-49.0); Mean Cell Volume 94.4 fL (80.0-100.0); Mean Corpuscular HGB Conc 34.4 g/dL (31.0-36.0); Mean Platelet Volume 10.2 fL (7.4-10.4); Monocytes # (Auto) 0.79 K/mcL (0.10-0.90); Monocytes % (Auto) 8.7 % (1.0-12.0); Neutrophils % (Auto) 53.9 % (38.0-78.0); Platelet Count 250 K/mcL (140-440); RBC 4.78 M/mcL (4.63-6.08); Red Cell Distribution Width 13.2 % (11.5-14.5); WBC 9.1 K/mcL (4.5-11.0)
[2021-06-14] MEDS: VITAMIN B COMPLEX 1 CAPSULE PO SCH (08:12)
[2021-06-14] MEDS: APIXABAN 5 MG TABLET PO SCH ×2 (08:13→19:58)
[2021-06-14] MEDS: TAMSULOSIN 0.4 MG CAPSULE PO SCH (08:13)
[2021-06-14] MEDS: DOCUSATE SODIUM 100 MG CAPSULE PO SCH ×2 (08:13→20:01)
[2021-06-14] MEDS: METOPROLOL TARTRATE 50 MG TABLET PO SCH (08:13)
[2021-06-14] MEDS: amLODIPine 10 MG TABLET PO SCH (08:14)
[2021-06-14 08:15] LABS: ALT/SGPT 8 U/L (<40); AST/SGOT 13 U/L (<40); Albumin 3.4 gm/dL (3.2-5.2); Albumin/Globulin Ratio 1.2 (1.0-2.3); Alkaline Phosphatase 76 U/L (39-117); Bilirubin,Total 0.7 mg/dL (0.1-1.0); Blood Urea Nitrogen 18 mg/dL (8-23); Calcium 9.1 mg/dL (8.6-10.4); Carbon Dioxide 24 mmol/L (22-30); Chloride 105 mmol/L (96-108); Globulin 2.8 gm/dL (2.2-3.7); Glomerular Filtration Rate 49; Glucose 127 mg/dL (70-105)
[2021-06-14] MEDS: VITAMIN D3 1,000 UNIT TABLET PO SCH (08:15)
[2021-06-14] MEDS: PARoxetine 20 MG TABLET PO SCH ×2 (08:15→08:44)
[2021-06-14] MEDS: FEXOFENADINE 180 MG TABLET PO SCH (08:15)
[2021-06-14] MEDS: FAMOTIDINE 20 MG TABLET PO SCH ×2 (08:15→20:00)
[2021-06-14] MEDS: MAGNESIUM OXIDE 400 MG TABLET PO SCH (08:16)
[2021-06-14] MEDS: FLUOROMETHOLONE 5 ML DROPS.SUSP OP SCH ×2 (09:27→20:01)
[2021-06-14] MEDS: NEO/POLYMYX B SULF/DEXAMETH 1 RIBBON OINT.OPHTH OU SCH ×3 (09:28→20:02)
[2021-06-14] MEDS ORDERED: FLU VACC QS2021-22(6MOS UP)/PF 60 MCG/0.5 ML SYRINGE IM ONE (10:00)
[2021-06-14] MEDS ORDERED: PNEUMOCOCCAL 23-VAL P-SAC VAC 0.5 ML SYRINGE IM ONE (10:00)
[2021-06-14] MEDS: cefTRIAXone 1 GM VIAL IV SCH (10:03)
[2021-06-14] MEDS: AZITHROMYCIN 500 MG in DEXTROSE 5% IN WATER 250 ML IV SCH (10:04)
[2021-06-14] MEDS: Cyclosporine [Restasis] 0.05 % Dropperette OU SCH ×2 (10:05→20:02)
--- NOTE | 2021-06-14 12:35 | Internal Med Progress Note ---
SUBJECTIVE Subjective Patient information: Note initiated : 06/14/21 at 12:34 pm Service Date, if different from initiated Date: [] Patient: Raymond Darnell a 89 y/o M admitted on 06/12/21 for UTI w/ increased weakness. Chief Complaint: [PNA, UTI] Interval history: History of present illness: Mr. 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 noticed patient to have cloudy urine on June 08, 2021. As a result, she brought him to PCP office where he was being diagnosed with urinary tract infections and was being discharged home with prescriptions of ciprofloxacin. Yesterday patient's developed general body weakness to the point that he was not able to ambulate and become bedbound. Earlier this morning he also developed some nonproductive cough. also noticed that patient developed episode of tonic-clonic seizures last for about 15 seconds this weekend. He denies any shortness of breath otherwise. He also had fever but denies any shaking chills or diaphoresis. There is no GI symptoms such as na usea, vomiting, diarrhea, or constipation's. Patient is currently denies any dysuria or change in urinary frequency or urgency. Vital signs at ED presentations are within normal limits. Labs significant for lack of leukocytosis with WBC 8.3. Lactic acid 1.0. Urinalysis suggest the presence of urinary tract infections. Chest x-ray showing bilateral pulmonary parenchymal infiltrates consistent with pneumonia. 06/13: Afebrile overnight. Tolerating room air. Been ambulating with walker with physical therapist. Blood and urine cultures no growth to date. Mild SOB. c/o nonproductive cough. Denies fever or chills. No seizures activities. Denies urinary symptoms such as dysuria. 06/14: Afebrile overnight. Tolerated CPAP last night. PT recs. SNF placement. Denies SOB. Denies cough or sputum production. Denies fever or chills. Denies dysuria. Constitutional Vitals: Vital Signs Temp Pulse Resp BP Pulse Ox 36.2 C 65 18 113/65 92 06/14/21 12:00 06/14/21 12:00 06/14/21 12:00 06/14/21 12:00 06/14/21 12:00 Period Temp Pulse Resp BP Sys/Gale Pulse Ox Last 24 Hr 36.1 C-36.9 C 60-94 16-22 104-158/63-81 91-96 Intake and Output 06/13/21 06/14/21 06/14/21 21:59 05:59 13:59 Intake Total 1350 360 Output Total 3 3 Balance 1347 -3 360 Weight 74.673 kg Intake & Output: Intake & Output 06/13/21 06/14/21 06/14/21 21:59 05:59 13:59 Intake Total 1350 360 Output Total 3 3 Balance 1347 -3 360 Weight 74.673 kg Intake: IV 250 Zithromax 500 mg In Dextrose 5% 250 in Water 250 ml @ 250 mls/hr IV Q24H [facility] Rx#:[id number] Oral 1100 360 Output: # of times incontinent of urine 3 3 Other: Meal Lunch Breakfast Percent of Meal Consumed 75% 75% Feeding Ability Needs Supervision Urine Color Bright Yellow Stool Size Moderate Stool Color Brown Stool Consistency Loose # of times incontinent of 1 Bowels General appearance: cooperative and no acute distress Exam: Frequent passing out dozing off and snoring during interview and examination Head Head exam: Present atraumatic and normocephalic Eye Eye exam: Present EOMI and PERRL ENT ENT exam: Present mucous membranes moist, normal exam and normal external ear exam Neck Neck exam: Present normal inspection; Absent lymphadenopathy, tenderness and thyromegaly Respiratory Respiratory exam: Absent accessory muscle use, respiratory distress and wheezes Cardiovascular Cardiovascular exam: Present normal rate and rhythm; Absent JVD GI/Abdominal GI/Abdominal exam: Present normal bowel sounds and soft; Absent organomegaly and tenderness Rectal Rectal exam: Present deferred Extremities Exam Extremities exam: Present full ROM, normal capillary refill and normal inspection; Absent tenderness Neurological Exam Neurological exam: Present alert, CN II-XII intact and oriented X3; Absent motor sensory deficit Psychiatric Psychiatric exam: Present normal affect and normal mood; Absent anxious and depressed Skin Skin exam: Present dry and intact OBJ DATA Labs CBC & Chem 7: 06/14/21 06:01 06/14/21 06:01 Labs: Abnormal Lab Results 06/14/21 06/13/21 06/13/21 06:01 05:57 05:57 Hgb 17.9 H Hct 51.8 H Carbon Dioxide 20 L Creatinine 1.3 H Glucose 127 H 154 H Urine Ketones Ur Leukocyte Esterase Urine RBC Urine WBC Urine Mucus 06/12/21 06/12/21 06/12/21 11:28 10:40 10:40 Hgb 17.6 H Hct Carbon Dioxide Creatinine 1.4 H Glucose 119 H Urine Ketones 5 A Ur Leukocyte Esterase 25 A Urine RBC 4 H Urine WBC 18 H Urine Mucus Few A Meds: Medications Acetaminophen (Acetaminophen 325 Mg Tablet) 650 mg PO Q6HP PRN; Protocol PRN Reason: Per Pain Protocol/Fever > 101 Albuterol/Ipratropium (Ipratropium/Albuterol 3 Ml Ampul.Neb) 3 ml NEB Q4HRT PRN PRN Reason: Wheezing Last Admin: 06/14/21 07:11 Dose: 3 ml Documented by: Amlodipine Besylate (Amlodipine 10 Mg Tablet) 10 mg PO QDAY [facility] Last Admin: 06/14/21 08:14 Dose: 10 mg Documented by: Apixaban (Apixaban 5 Mg Tablet) 2.5 mg PO BID [facility] Last Admin: 06/14/21 08:13 Dose: 2.5 mg Documented by: Ceftriaxone Sodium (Ceftriaxone 1 Gm Vial) 1 gm IV Q24H [facility] Last Admin: 06/14/21 10:03 Dose: 1 gm Documented by: Docusate Sodium (Docusate Sodium 100 Mg Capsule) 100 mg PO BID [facility] Last Admin: 06/14/21 08:13 Dose: 100 mg Documented by: Famotidine (Famotidine 20 Mg Tablet) 20 mg PO BID [facility] Last Admin: 06/14/21 08:15 Dose: 20 mg Documented by: Fexofenadine HCl (Fexofenadine 180 Mg Tablet) 180 mg PO DAILY [facility] Last Admin: 06/14/21 08:15 Dose: 180 mg Documented by: Fluorometholone (Fluorometholone 5 Ml Drops.Susp) 1 ml OP BID [facility] Last Admin: 06/14/21 09:27 Dose: 1 ml Documented by: Guaifenesin (Guaifenesin/Dextromethorphan Oral Harriett) 10 ml PO Q4HP PRN PRN Reason: Cough Azithromycin 500 mg/ Dextrose 250 mls @ 250 mls/hr IV Q24H [facility]; Protocol Stop: 06/14/21 16:59 Last Admin: 06/14/21 10:04 Dose: 250 mls/hr Documented by: Ketoconazole (Ketoconazole 2% Top Crm 15gm Tube) 1 dose TOPICAL DAILYP PRN PRN Reason: Itching Lorazepam (Lorazepam 0.5 Mg Tablet) 0.5 mg PO QHS PRN PRN Reason: Anxiety Lorazepam (Lorazepam 2 Mg/Ml Vial) 2 mg IV Q1HP PRN PRN Reason: Seizure Activity Last Admin: 06/13/21 15:52 Dose: 2 mg Documented by: Melatonin (Melatonin 3 Mg Tablet) 9 mg PO HSP PRN PRN Reason: Sleep Last Admin: 06/13/21 21:57 Dose: 9 mg Documented by: Metoprolol Tartrate (Metoprolol Tartrate 50 Mg Tablet) 50 mg PO DAILY [facility] Last Admin: 06/14/21 08:13 Dose: 50 mg Documented by: Metoprolol Tartrate (Metoprolol Tartrate 25 Mg Tablet) 25 mg PO [facility] Last Admin: 06/13/21 21:58 Dose: 25 mg Documented by: Neomycin/Polymyxin/Dexamethasone (Valentino/Polymyx B Sulf/Dexameth 1 Ribbon Oint.Ophth) 1 ribbon OU TID [facility] Last Admin: 06/14/21 09:28 Dose: 1 gtt Documented by: Ondansetron HCl (Ondansetron 4 Mg/2 Ml Vial) 4 mg IV Q6HP PRN PRN Reason: Nausea And Vomiting Cyclosporine [ Restasis] 0.05 % Dropperette 1 dose OU Q12H [facility] Last Admin: 06/14/21 10:05 Dose: Not Given Documented by: Senna (Sennosides 1 Tablet) 2 tab PO [facility] Last Admin: 06/13/21 21:59 Dose: Not Given Documented by: Sodium Chloride (0.9 % Sodium Chloride 10 Ml Syringe) 10 ml IV Q8 [facility] Last Admin: 06/14/21 05:26 Dose: 10 ml Documented by: Tamsulosin HCl (Tamsulosin 0.4 Mg Capsule) 0.4 mg PO DAILY [facility] Last Admin: 06/14/21 08:13 Dose: 0.4 mg Documented by: Vitamin D (Vitamin D3 1,000 Unit Tablet) 1,000 unit PO DAILY [facility] Last Admin: 06/14/21 08:15 Dose: 1,000 unit Documented by: A/P Assessment and plan (1) Weakness: Status: Acute (2) Chronic anticoagulation: Status: Chronic Comment: Eliquis; due to DVT and PE. (3) CKD (chronic kidney disease) stage 3, GFR 30-59 ml/min: Status: Chronic Comment: Combo of HTN and vascular disease most likely Qualifiers: Chronic kidney disease stage 3 subtype: stage 3a (GFR 45-59) Qualified Code(s): N18.31 - Chronic kidney disease, stage 3a (4) Hypertension, essential: Status: Chronic Comment: Goal BP 130/80 (5) GERD (gastroesophageal reflux disease): Status: Acute (6) Anxiety disorder: Status: Acute (7) BPH (benign prostatic hypertrophy) with urinary obstruction: Status: Acute (8) Seizure: Status: Acute (9) UTI (urinary tract infection): Status: Acute (10) Community acquired pneumonia: Status: Acute (11) MICHELLE (obstructive sleep apnea): Status: Acute Narrative A/P Narrative: Assessment and plan: 1. General body weakness secondary to community-acquired pneumonia and urinary tract infections: Inpatient MedSurg Okay to saline lock Serial lactic acid Procalcitonin Blood culture, no growth to date Urine culture, no growth to date CBC with auto differential in the morning to trend WBC Rocephin Zithromax Tylenol as needed fever Robitussin-DM as needed cough DuoNeb nebulizer as needed wheezing Physical therapy evaluation and treatment-->SNF placement Occupational Therapy evaluation and treatment Speech therapy evaluation and treatment #2 history of seizure disorder: Right does not want patient on any long-term antiepileptic therapy at this moment Ativan IV as needed seizure activities Seizure precaution Treat any seizure triggers such as infections, see #1 #3 essential hypertension: Currently normotensive Continue home regimen of oral antihypertensive including amlodipine and beta- jacqui #4 history of chronic kidney disease stage III: Current serum creatinine level at baseline Okay to saline lock CMP in the morning to trend kidney functions 5. Anxiety disorder: Continue paroxetine Continue home regiment of oral Ativan at night as needed for anxiety #6 BPH: Continue Flomax #7 on chronic anticoagulation therapy secondary to history of DVT and PE: Continue Eliquis 8. GERD: Continue famotidine 9. MICHELLE: CPAP at night or while sleeping Need a new outpatient sleep study GI prophylaxis: Continue famotidine DVT prophylaxis: Eliquis CODE STATUS: DNI DNR Prognosis: Stable Dispositions: Inpatient MedSurg; PT recs. SNF placement Time Spent With Patient Time: Total time spent is greater than 50% in coordination of care (as docu mented) at patient's floor/unit and/or counseling patient:
[2021-06-14] MEDS: METOPROLOL TARTRATE 25 MG TABLET PO SCH (19:58)
[2021-06-14] MEDS: MELATONIN 3 MG TABLET PO PRN (19:58)
[2021-06-14] MEDS: SENNOSIDES 1 TABLET PO SCH (20:01)
[2021-06-15] MEDS: 0.9 % SODIUM CHLORIDE 10 ML SYRINGE IV SCH (04:47)
[2021-06-15 07:32] LABS: Basophils # (Auto) 0.05 K/mcL (0.00-0.30); Basophils % (Auto) 0.4 % (0.0-2.0); Eosinophils # (Auto) 0.18 K/mcL (0.00-0.70); Eosinophils % (Auto) 1.6 % (0.0-7.0); Hematocrit 46.6 % (40.1-51.0); Hemoglobin 16.2 g/dL (13.7-17.5); Lymphocytes # (Auto) 2.55 K/mcL (1.50-4.80); Lymphocytes % (Auto) 22.4 % (15.5-49.0); Mean Cell Volume 92.5 fL (80.0-100.0); Mean Corpuscular HGB Conc 34.8 g/dL (31.0-36.0); Mean Platelet Volume 10.1 fL (7.4-10.4); Monocytes # (Auto) 0.89 K/mcL (0.10-0.90); Monocytes % (Auto) 7.8 % (1.0-12.0); Neutrophils % (Auto) 67.8 % (38.0-78.0); Platelet Count 244 K/mcL (140-440); RBC 5.04 M/mcL (4.63-6.08); Red Cell Distribution Width 12.9 % (11.5-14.5); WBC 11.4 K/mcL (4.5-11.0)
--- NOTE | 2021-06-15 07:59 | XRay Report ---
HISTORY: Fell, increased weakness FINDINGS: AP view of the pelvis was obtained. There is no fracture or destructive bone lesion. Joint spaces in both hips are normal in width and alignment. SI joints and symphysis pubis are also normal. Moderate disc space narrowing is present at L3-4 and L4-5. There are multiple vascular calcifications in the pelvis. IMPRESSION: No fracture Interpreted and Authenticated by: Yandel Clark 06/15/21
[2021-06-15 08:15] LABS: ALT/SGPT 8 U/L (<40); AST/SGOT 12 U/L (<40); Albumin 3.7 gm/dL (3.2-5.2); Albumin/Globulin Ratio 1.2 (1.0-2.3); Alkaline Phosphatase 84 U/L (39-117); Bilirubin,Total 0.6 mg/dL (0.1-1.0); Blood Urea Nitrogen 19 mg/dL (8-23); Carbon Dioxide 25 mmol/L (22-30); Chloride 100 mmol/L (96-108); Glomerular Filtration Rate 53; Glucose 148 mg/dL (70-105)
[2021-06-15] MEDS: FEXOFENADINE 180 MG TABLET PO SCH (09:57)
[2021-06-15] MEDS: APIXABAN 5 MG TABLET PO SCH (09:57)
[2021-06-15] MEDS: METOPROLOL TARTRATE 50 MG TABLET PO SCH (09:57)
[2021-06-15] MEDS: FAMOTIDINE 20 MG TABLET PO SCH (09:58)
[2021-06-15] MEDS: amLODIPine 10 MG TABLET PO SCH (09:58)
[2021-06-15] MEDS: TAMSULOSIN 0.4 MG CAPSULE PO SCH (09:58)
[2021-06-15] MEDS: VITAMIN D3 1,000 UNIT TABLET PO SCH (09:58)
[2021-06-15] MEDS: DOCUSATE SODIUM 100 MG CAPSULE PO SCH (09:59)
[2021-06-15] MEDS: Cyclosporine [Restasis] 0.05 % Dropperette OU SCH (10:00)
[2021-06-15] MEDS: cefTRIAXone 1 GM VIAL IV SCH (10:00)
--- NOTE | 2021-06-15 10:10 | Discharge Summary ---
Discharge Provider Provider Patient information: Note initiated : 06/15/21 at 10:09 am Service Date, if different from initiated Date: [] Patient: Raymond Darnell 89 y/o M admitted on 06/14/21 for UTI w/ increased weakness. Chief Complaint: [CAP, UTI, weakness] History of present illness: Mr. Darnell is a 89 year old M history of stroke, chronic kidney disease stage III, on anticoagulation therapy due to history of DVT and pulmonary embolism, essential hypertension, BPH, seizure disorder, anxi ety disorder, presenting with 2-day history of general body weakness. noticed patient to have cloudy urine on June 08, 2021. As a result, she brought him to PCP office where he was being diagnosed with urinary tract infections and was being discharged home with prescriptions of ciprofloxacin. Yesterday patient's developed general body weakness to the point that he was not able to ambulate and become bedbound. Earlier this morning he also developed some nonproductive cough. also noticed that patient developed episode of tonic-clonic seizures last for about 15 seconds this weekend. He denies any shortness of breath otherwise. He also had fever but denies any shaking chills or diaphoresis. There is no GI symptoms such as nausea, vomiting, diarrhea, or constipation's. Patient is currently denies any dysuria or change in urinary frequency or urgency. Vital signs at ED presentations are within normal limits. Labs significant for lack of leukocytosis with WBC 8.3. Lactic acid 1.0. Urinalysis suggest the presence of urinary tract infections. Chest x-ray showing bilateral pulmonary parenchymal infiltrates consistent with pneumonia. Date of admission: 06/14/21 12:33 Discharge date: 06/15/21 Primary care physician: Raffi Randolph MD Consults: 06/12/21 Consult to Physician [CONS] Stat Comment: Consulting Provider: Dion Mcfadden Reason For Exam: Physician to Consult Discharge Meds Discharge Medications Home Medications amlodipine 10 mg tablet 10 mg PO QDAY 02/15/16 [History Confirmed 06/12/21 Last Taken Unknown] tamsulosin 0.4 mg capsule 0.4 mg PO Q24H 05/17/16 [History Confirmed 06/12/21 Last Taken Unknown] apixaban 2.5 mg tablet 2.5 mg PO BID tab 11/06/16 [History Confirmed 06/12/21 Last Taken Unknown] cholecalciferol (vitamin D3) 25 mcg (1,000 unit) capsule 1,000 unit PO QDAY cap 11/06/16 [History Confirmed 06/12/21 Last Taken Unknown] ketoconazole 2 % topical cream 1 applic TOPICAL HSP PRN 12/06/17 [History Confirmed 06/12/21 Last Taken Unknown] melatonin 10 mg capsule 10 mg PO HS PRN 07/29/19 [History Confirmed 06/12/21 Last Taken Unknown] famotidine 20 mg tablet 20 mg PO BID tab 03/29/21 [History Confirmed 06/12/21 Last Taken Unknown] fexofenadine 180 mg tablet 180 mg PO QDAY 03/29/21 [History Confirmed 06/12/21 Last Taken Unknown] metoprolol tartrate 50 mg tablet See Rx Instructions .ROUTE .COMPLEX tab 03/29/21 [History Confirmed 06/12/21 Last Taken Unknown] Restasis 1 drp OPHTHALMIC (EYE) Q12H 06/12/21 [History Confirmed 06/12/21 Last Taken Unknown] fluorometholone 2 drp OPHTHALMIC (EYE) BID 06/12/21 [History Confirmed 06/12/21 Last Taken Unknown] neomycin-polymyxin B-dexameth 1 ea OPHTHALMIC (EYE) TID 06/12/21 [History Confirmed 06/12/21 Last Taken Unknown] ciprofloxacin HCl 500 mg PO BID 5 Days #10 tab 06/15/21 [Rx Last Taken Unknown] paroxetine HCl 10 mg PO QDAY 06/15/21 [History Confirmed 06/15/21 Last Taken Unknown] COURSE Hospital Course Hospital course: Patient was admitted on June 12, 2021 for general body weakness, urinary tract infections, community-acquired pneumonia, and also obstructive sleep apnea not on CPAP. After blood and urine cultures were collected, patient was started on Rocephin and Zithromax. Blood culture remain no growth to date. Patient's was started on CPAP at night during sleeping for his obstructive sleep apnea and he responds wonderfully with that. Physical therapy evaluated the patient and recommend SNF placement but patient and family refused and wanted to go home with home health and health provider instead. Patient reached clinical stability on June 15, 2021, and was being discharged home with home health. Prescriptions of additional days of antibiotics given to him. 2 weeks PCP follow-up appointment made for the patient. He should have a outpatient sleep study done as soon as possible. All questions were answered prior to patient being physically discharged. Discharge diagnosis: PNA, UTI, weakness Time Spent with Patient Time attestation: Total time spent providing and/or coordinating discharge services: Patient was admitted on June 12, 2021 for general body weakness, urinary tract infections, community-acquired pneumonia, and also obstructive sleep apnea not on CPAP. After blood and urine cultures were collected, patient was started on Rocephin and Zithromax. Blood culture remain no growth to date. Patient's was started on CPAP at night during sleeping for his obstructive sleep apnea and he responds wonderfully with that. Physical therapy evaluated the patient and recommend SNF placement but patient and family refused and wanted to go home with home health and health provider instead. Patient reached clinical stability on June 15, 2021, and was being discharged home with home health. Prescriptions of additional days of antibiotics given to him. 2 weeks PCP follow-up appointment made for the patient. He should have a outpatient sleep study done as soon as possible. All questions were answered prior to patient being physically discharged. EXAM Constitutional Vitals: Temp Pulse Resp BP Pulse Ox 36.6 C 106 H 20 151/94 91 06/15/21 08:00 06/15/21 08:00 06/15/21 08:00 06/15/21 08:00 06/15/21 08:00 General appearance: cooperative and no acute distress Head Head exam: Present atraumatic and normocephalic Eye Eye exam: Present EOMI and PERRL ENT ENT exam: Present mucous membranes moist, normal exam and normal external ear exam Neck Neck exam: Present normal inspection; Absent lymphadenopathy, tenderness and thyromegaly Respiratory Respiratory exam: Absent accessory muscle use, respiratory distress and wheezes Cardiovascular Cardiovascular exam: Present normal rate and rhythm; Absent JVD GI/Abdominal GI/Abdominal exam: Present normal bowel sounds and soft; Absent organomegaly and tenderness Rectal Rectal exam: Present deferred Extremities Exam Extremities exam: Present full ROM, normal capillary refill and normal inspection; Absent tenderness Neurological Exam Neurological exam: Present alert, CN II-XII intact and oriented X3; Absent motor sensory deficit Psychiatric Psychiatric exam: Present normal affect and normal mood; Absent anxious and depressed Skin Skin exam: Present dry and intact Discharge Data Data Completed and Pending Labs on day of discharge: Labs from last 24 hours 06/15/21 06/15/21 06:16 06:16 WBC 11.4 H RBC 5.04 Hgb 16.2 Hct 46.6 MCV 92.5 MCH 32.1 MCHC 34.8 RDW 12.9 Plt Count 244 MPV 10.1 Neut % (Auto) 67.8 Lymph % (Auto) 22.4 Bremer % (Auto) 7.8 Eos % (Auto) 1.6 Baso % (Auto) 0.4 Lymph # (Auto) 2.55 Bremer # (Auto) 0.89 Eos # (Auto) 0.18 Baso # (Auto) 0.05 Absolute Neutrophils 7.69 Sodium 136 Potassium 3.3 Chloride 100 Carbon Dioxide 25 Anion Gap 11.0 BUN 19 Creatinine 1.2 GFR Calculation 53 Glucose 148 H Calcium 9.0 Total Bilirubin 0.6 AST 12 ALT 8 Alkaline Phosphatase 84 Total Protein 6.7 Albumin 3.7 Globulin 3.0 Albumin/Globulin Ratio 1.2 Preliminary micro results at discharge 06/12/21 11:08 Blood Culture - Preliminary Blood 06/12/21 11:00 Blood Culture - Preliminary Blood Discharge Plan Patient/Caregiver Discharge Instructions Activity: increase activity as tolerated Diet: Regular Diet Prescriptions: Continued amlodipine 10 mg tablet 10 mg PO QDAY RF: 0 tamsulosin [Flomax] 0.4 mg capsule,extended release 24hr 0.4 mg PO Q24H RF: 0 apixaban [Eliquis] 2.5 mg tablet 2.5 mg PO BID RF: 0 cholecalciferol (vitamin D3) 1,000 unit capsule 1,000 unit PO QDAY RF: 0 ketoconazole 2 % cream 1 applic TOPICAL HSP PRN (Reason: Rash) RF: 0 metoprolol tartrate 50 mg tablet See Rx Instructions .ROUTE .COMPLEX RF: 0 melatonin 10 mg capsule 10 mg PO HS PRN (Reason: Insomnia) RF: 0 famotidine 20 mg tablet 20 mg PO BID RF: 0 fexofenadine [Elly Allergy] 180 mg tablet 180 mg PO QDAY RF: 0 fluorometholone 0.1 % drops,suspension 2 drp OPHTHALMIC (EYE) BID RF: 0 neomycin-polymyxin B-dexameth 3.5 mg/g-10,000 unit/g-0.1 % ointment 1 ea OPHTHALMIC (EYE) TID RF: 0 Restasis 0.05 % Dropperette 1 drp OPHTHALMIC (EYE) Q12H RF: 0 paroxetine HCl 10 mg Tablet 10 mg PO QDAY RF: 0 ciprofloxacin HCl 500 mg tablet 500 mg PO BID 5 Days Qty: 10 RF: 0 Follow Up Plan Follow up with: Raffi Randolph MD [Primary Care Provider] - Patient Disposition: Home Health Service Rehab Potential: Good I certify that the patient requires SNF services: Yes Overall status at discharge: patient is back to baseline Discharge Orders: Discharge Order (Routine); Ordered 06/15/21 Ordered By: Dion Mcfadden
[2021-06-15] MEDS: NEO/POLYMYX B SULF/DEXAMETH 1 RIBBON OINT.OPHTH OU SCH (10:26)
[2021-06-15] MEDS: FLUOROMETHOLONE 5 ML DROPS.SUSP OP SCH (10:26)
== END 2021-06-15 13:15 | disposition home health service (06) | DRG 194 ==
LOC: MEDSUR 10:05 → ED 10:05 → MEDSUR 15:15
PROVIDERS: ADMIT Internal Medicine; ATTEND Internal Medicine

== ENCOUNTER 2022-09-22 20:16 | Inpatient (IN) ==
[2022-09-22] MEDS ORDERED: 0.9 % SODIUM CHLORIDE 1,000 ML IV ONE ×2 (20:24→20:33)
[2022-09-22] MEDS ORDERED: cefTRIAXone 1 GM VIAL IV ONE (20:25)
[2022-09-22] MEDS ORDERED: ACETAMINOPHEN 325 MG TABLET PO ONE (20:33)
[2022-09-22 20:35] LABS: POC Calcium, Ionized 1.11 (1.16-1.32); POC Potassium 3.7 (3.3-5.1)
--- NOTE | 2022-09-22 20:44 | Emergency Department Note ---
Male Urogenital HPI General Chief complaint: Urogenital-Male Stated complaint: Dx with UTI today, fever of 102, agitation Time Seen by Provider: 09/22/22 20:23 Source: family Mode of arrival: EMS Limitations: no limitations History of Present Illness HPI Narrative: Narrative: The patient is brought in due to slight agitation and fevers. The patient was diagnosed with a UTI today. When he got home, he seemed to become slightly more agitated and then the noted a fever. He presents in here with that compla int. He complains of a generalized weakness as well. No chest or abdominal pain. No flank pain. No vomiting or diarrhea. The says he has had a slight nonproductive cough for the last few days. She does not think he has had any difficulty breathing. Related Data Home Medications Medication Instructions Recorded Confirmed cholecalciferol (vitamin D3) 25 1,000 unit PO QDAY 11/06/16 09/07/22 mcg (1,000 unit) capsule melatonin 10 mg capsule 10 mg PO HS PRN Insomnia 07/29/19 09/07/22 fexofenadine 180 mg tablet 180 mg PO QDAY 03/29/21 09/07/22 (Elly Allergy) lorazepam 0.5 mg tablet 0.5 mg PO QDAY PRN 06/21/21 09/07/22 carboxymethylcellulose sodium 0.5 1 drp ophthalmic (eye) Q2H 06/24/21 09/07/22 % eye drops in a dropperette (Refresh Plus) aspirin 81 mg tablet,delayed 81 mg PO QDAY 10/04/21 09/07/22 release (Adult Low Dose Aspirin) polyethylene glycol 3350 17 4 g PO QDAY 02/08/22 09/07/22 gram/dose oral powder (Miralax) Previous Rx's Medication Instructions Recorded clotrimazole 1 % topical cream 1 applic topical BID 1 week #15 03/31/22 grams hydrocortisone 1 % topical cream 1 applic topical BID 1 week #28.35 03/31/22 grams metoprolol tartrate 25 mg tablet 25 mg PO BID 90 days #180 tabs 04/20/22 ipratropium bromide 42 mcg (0.06 2 spray intranasal TID-QID PRN 06/16/22 %) nasal spray allergy symptoms #15 mL losartan 50 mg tablet 50 mg PO BID #180 tabs 07/18/22 famotidine 20 mg tablet (Pepcid) 20 mg PO BID #180 tabs 07/25/22 tamsulosin 0.4 mg capsule (Flomax) 0.4 mg PO QDAY #90 caps 08/17/22 hydrochlorothiazide 25 mg tablet 25 mg PO QAM #90 tabs 08/21/22 rivaroxaban 15 mg tablet (Xarelto) 15 mg PO QDAY #30 tabs 09/14/22 paroxetine HCl 10 mg tablet 10 mg PO QDAY #90 tabs 09/21/22 ciprofloxacin HCl 500 mg tablet 500 mg PO BID #14 tabs 09/22/22 Allergies Allergy/AdvReac Type Severity Reaction Status Date / Time carbamazepine Allergy Severe Seizure Verified 09/07/22 14:15 lacosamide [From Vimpat] Allergy Severe Seizure Verified 09/07/22 14:15 levetiracetam Allergy Severe Seizure Verified 09/07/22 14:15 sulfamethoxazole Allergy Severe Rogelio Verified 09/07/22 14:15 [From Bactrim] Diego Syndrome trimethoprim [From Bactrim] Allergy Severe Rogelio Verified 09/07/22 14:15 Diego Syndrome Penicillins Allergy Unknown Unknown Verified 09/07/22 14:15 lamotrigine AdvReac Severe SJ Syndrome Verified 09/07/22 14:15 Review of Systems ROS ROS Narrative: Narrative: All systems ED: reviewed and negative except as stated. [facility] Narrative Patient History Narrative: Narrative: Medical/Surgical/Family History All Active Problems (Updated 09/22/22 @ 22:03 by Aubrey Mariano MD) Severe sepsis (Acute) Acute UTI (Acute) Contusion of foot, left (Acute) Basal cell carcinoma (Acute) Annual physical exam (Acute) Medicare annual wellness visit, initial (Acute) Atypical squamoproliferative skin lesion (Acute) Rhinitis (Acute) Type 2 diabetes mellitus without complications (Acute) UTI (urinary tract infection) (Acute) Complex sleep apnea syndrome (Chronic) Bradycardia (Acute) Mixed sleep apnea (Chronic) Bilateral lower extremity edema (Acute) Altered mental status (Acute) Hospital discharge follow-up (Acute) Balanitis (Acute) Impaired mobility (Acute) Pressure ulcer of sacral region (Acute) Intracranial meningioma (Acute) Actinic keratosis (Acute) Neoplasm of uncertain behavior of skin (Acute) Scar conditions/skin fibrosis (Acute) 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) Basal cell carcinoma (Acute) Negron-Diego syndrome (Acute) Arthritis (Acute) Inguinal hernia (Acute) TIA (transient ischemic attack) (Acute) Meningioma (Acute) Cognitive impairment (Acute) CAD (coronary artery disease) (Acute) DVT (deep venous thrombosis) (Acute) Dry eye syndrome of bilateral lacrimal glands (Acute) Seizure (Acute) Facial lesion (Acute) MICHELLE (obstructive sleep apnea) (Acute) Weakness (Acute) Community acquired pneumonia (Acute) UTI (urinary tract infection) (Acute) SJS-TEN overlap syndrome (Acute) YESY (acute kidney injury) (Acute) Weakness (Acute) Chronic anticoagulation (Chronic) Grand mal seizure (Acute) Brain lesion (Acute) Brain edema (Acute) CKD (chronic kidney disease) stage 3, GFR 30-59 ml/min (Chronic) TIA (transient ischemic attack) (Acute) Leukocytosis (Acute) Polycythemia (Acute) Tachycardia (Acute) Hypertensive renal disease (Chronic ~1959) Hyponatremia (Chronic) Chronic kidney disease, stage III (moderate) (Chronic) Vertigo (Acute) History of skin cancer (Acute) Screening for colon cancer (Acute) Rhinitis, allergic (Acute) Renal insufficiency (Acute) Memory loss (Acute) Knee pain (Acute) Hypertension, essential (Chronic) Hypercholesterolemia (Acute) GERD (gastroesophageal reflux disease) (Chronic) Gastritis, acute (Acute) BPH (benign prostatic hypertrophy) with urinary obstruction (Acute) Anxiety disorder (Acute) Medical History Actinic keratosis Anxiety disorder Arthritis Balanitis Basal cell carcinoma Bilateral lower extremity edema BPH (benign prostatic hypertrophy) with urinary obstruction Bradycardia CAD (coronary artery disease) Chronic anticoagulation Eliquis; due to DVT and PE. Chronic kidney disease, stage III (moderate) Cognitive impairment Dry eye syndrome of bilateral lacrimal glands DVT (deep venous thrombosis) Facial lesion Left Gastritis, acute GERD (gastroesophageal reflux disease) History of skin cancer Left face Hospital discharge follow-up Hypercholesterolemia Hypertension, essential Goal BP 130/80 Hypertensive renal disease (~1959) Goal BP 130/80 Hyponatremia mild hyponatremia while on HCTZ Na at 134 improved to 140 Will monitor for now Impaired mobility Inguinal hernia Intracranial meningioma Knee pain Right Leukocytosis 05/31/2015 - Dr. 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 Zavala TIA (transient ischemic attack) TIA (transient ischemic attack) Type 2 diabetes mellitus without complications UTI (urinary tract infection) Vertigo Surgical History History of colonoscopy (03/13/14) HP History of heart artery stent History of hernia repair Hernia repair left and right many years ago History of knee replacement History of prostate surgery History of tonsillectomy Family History Mother , at 97 Family history of hypertension Father , 97 Pneumonia Sister Family history of hypertension Social History Smoking Status: Never smoker Alcohol Intake Frequency: does not drink Substance Use: does not use Exam Narrative Narrative: Narrative: General Limitations: no limitations General appearance: Present alert and in no apparent distress Head Head: Present atraumatic and normal inspection Eye Eye: Present normal appearance, PERRL and EOMI ENT ENT: Present mucous membranes dry; Absent mucous membranes moist Neck Neck: Present normal inspection, full ROM and trachea midline; Absent meningismus Chest Chest: Present normal inspection and symmetric chest wall rise Respiratory Respiratory: Present normal lung sounds bilaterally; Absent respiratory distress Cardiovascular Cardiovascular: Present normal rhythm, tachycardia and other (Bilateral radial 2+); Absent regular rate Adbominal Abdominal: Present soft; Absent distention or tenderness Extremities Extremities: Present normal inspection and full ROM Back Back: Present full ROM; Absent CVA tenderness (R) or CVA tenderness (L) Neurological Neurological: Present alert and CN II-XII intact; Absent oriented X3 (Patient seems slightly confused to date. He does take several verbal prompts to answer questions. states that this is due to him being hard of hearing) or motor sensory deficit Psychiatric Psychiatric: Present normal affect and normal mood Skin Skin: Present warm (WNL) and dry Course Reevaluation(s) Reevaluation #1: On the monitor, it appeared that the patient had a short run of nonsustained ventricular tachycardia. Due to this, I had a discussion with the patient and the . They state that they have had end-of-life discussions and that the patient does not want to have chest compressions nor intubation. Time: 20:48 Reevaluation #2: The patient has had a few other runs of nonsustained V. tach. I will give 150 mg of amiodarone Time: 21:04 Reevaluation #3: The has informed me that the patient fell last week and injured his left foot. Plan to image his left foot. Examination of the left foot does show mild soft tissue swelling but no obvious deformity and patient has no bony tenderness. Time: 21:39 Consultations Consultation #1: I spoke to the hospitalist, Dr. Zavala. He agreed to admit this gentleman Time: 22:03 Vital Signs Vital signs: Vital Signs Temperature 99.2 F H 09/22/22 20:17 Pulse Rate 110 H 09/22/22 20:17 Respiratory Rate 23 H 09/22/22 20:17 Blood Pressure 134/68 09/22/22 20:17 Pulse Oximetry (%) 94 09/22/22 20:17 Oxygen Delivery Method Room Air 09/22/22 20:17 Temperature 99.8 F H 09/22/22 21:52 Pulse Rate 88 09/22/22 21:52 Respiratory Rate 24 H 09/22/22 21:52 Blood Pressure 126/65 09/22/22 21:52 Pulse Oximetry (%) 97 09/22/22 21:52 Oxygen Delivery Method Nasal Cannula 09/22/22 21:52 Oxygen Flow Rate (L/min) 1.5 09/22/22 20:48 [facility] MDM Narrative Medical decision making narrative: Narrative: The patient presents with a diagnosis of UTI as an outpatient. Based on his vital signs, he is septic. Blood pressure does not seem to be an issue. We will repeat a UA and obtain other appropriate labs to include lactate and cultures. Due to the cough, I will obtain a chest x-ray and COVID swab. We will give a dose of Rocephin. We will give 2 L of fluid. Patient most likely will need to be admitted into the hospital. Sepsis Sepsis Identified: Yes Time Zero: 2042 Lab Data Lab results reviewed: Yes I reviewed the patient's lab results. 09/22/22 20:30 09/22/22 20:30 Labs: Lab Results 09/22/22 09/22/22 09/22/22 Range/Units 20:29 20:30 20:30 WBC 15.2 H (4.5-11.0) K/mcL RBC 4.43 L (4.63-6.08) M/mcL Hgb 14.5 (13.7-17.5) g/dL Hct 41.7 (40.1-51.0) % POC Hct (41-55) MCV 94.1 (80.0-100.0) fL MCH 32.7 (26.0-34.0) pg MCHC 34.8 (31.0-36.0) g/dL RDW 12.9 (11.5-14.5) % Plt Count 222 (140-440) K/mcL MPV 9.9 (8.8-12.5) fL Immature Gran % (Auto) 0.3 (0.0-0.5) % Neut % (Auto) 86.1 H (38.0-78.0) % Lymph % (Auto) 10.0 L (15.5-49.0) % [place] % (Auto) 2.8 (1.0-12.0) % Eos % (Auto) 0.5 (0.0-7.0) % Baso % (Auto) 0.3 (0.0-2.0) % Lymph # (Auto) 1.52 (1.50-4.80) K/mcL [place] # (Auto) 0.43 (0.10-0.90) K/mcL Eos # (Auto) 0.07 (0.00-0.70) K/mcL Baso # (Auto) 0.05 (0.00-0.30) K/mcL Immature Gran # 0.04 (0.00-0.05) K/mcl Absolute Neutrophils 13.07 H (1.80-8.00) K/mcL POC VBG pH 7.37 (7.32-7.42) POC VBG pCO2 at Temp 42.1 (41-51) POC VBG pO2 26 (25-40) POC VBG HCO3 24.4 (24-28) POC VBG Total CO2 26.0 (25-29) POC Venous O2 Sat 46.0 (40-70) POC VBG Base Excess -1.0 (-2-2) VBG Lactic Acid 3.8 H (0.5-2) POC Sodium (133-145) Sodium 125 L (133-145) mmol/L POC Potassium (3.3-5.1) Potassium 3.6 (3.3-5.1) mmol/L POC Chloride (96-108) Chloride 88 L (96-108) mmol/L Carbon Dioxide 23 (22-30) mmol/L POC Total CO2 (22-30) Anion Gap 14.0 (8.0-16.0) POC BUN (6-20) BUN 26 H (8-23) mg/dL Creatinine 1.8 H (0.7-1.2) mg/dL POC Creatinine (0.6-1.2) GFR Calculation 32 Glucose 125 H (70-105) mg/dL POC Glucose (70-105) Calcium 8.8 (8.6-10.4) mg/dL POC WB Ioniz Calcium (1.16-1.32) Total Bilirubin 1.1 H (0.1-1.0) mg/dL AST 12 (<40) U/L ALT 9 (<40) U/L Alkaline Phosphatase 78 (39-117) U/L Total Protein 6.8 (5.9-8.4) gm/dL Albumin 4.0 (3.2-5.2) gm/dL Globulin 2.8 (2.2-3.7) gm/dL Albumin/Globulin Ratio 1.4 (1.0-2.3) 09/22/22 Range/Units 20:31 WBC (4.5-11.0) K/mcL RBC (4.63-6.08) M/mcL Hgb (13.7-17.5) g/dL Hct (40.1-51.0) % POC Hct 44.0 (41-55) MCV (80.0-100.0) fL MCH (26.0-34.0) pg MCHC (31.0-36.0) g/dL RDW (11.5-14.5) % Plt Count (140-440) K/mcL MPV (8.8-12.5) fL Immature Gran % (Auto) (0.0-0.5) % Neut % (Auto) (38.0-78.0) % Lymph % (Auto) (15.5-49.0) % [place] % (Auto) (1.0-12.0) % Eos % (Auto) (0.0-7.0) % Baso % (Auto) (0.0-2.0) % Lymph # (Auto) (1.50-4.80) K/mcL [place] # (Auto) (0.10-0.90) K/mcL Eos # (Auto) (0.00-0.70) K/mcL Baso # (Auto) (0.00-0.30) K/mcL Immature Gran # (0.00-0.05) K/mcl Absolute Neutrophils (1.80-8.00) K/mcL POC VBG pH (7.32-7.42) POC VBG pCO2 at Temp (41-51) POC VBG pO2 (25-40) POC VBG HCO3 (24-28) POC VBG Total CO2 (25-29) POC Venous O2 Sat (40-70) POC VBG Base Excess (-2-2) VBG Lactic Acid (0.5-2) POC Sodium 131 L (133-145) Sodium (133-145) mmol/L POC Potassium 3.7 (3.3-5.1) Potassium (3.3-5.1) mmol/L POC Chloride 95 L (96-108) Chloride (96-108) mmol/L Carbon Dioxide (22-30) mmol/L POC Total CO2 25.0 (22-30) Anion Gap (8.0-16.0) POC BUN 29 H (6-20) BUN (8-23) mg/dL Creatinine (0.7-1.2) mg/dL POC Creatinine 2.0 H (0.6-1.2) GFR Calculation Glucose (70-105) mg/dL POC Glucose 130 H (70-105) Calcium (8.6-10.4) mg/dL POC WB Ioniz Calcium 1.11 L (1.16-1.32) Total Bilirubin (0.1-1.0) mg/dL AST (<40) U/L ALT (<40) U/L Alkaline Phosphatase (39-117) U/L Total Protein (5.9-8.4) gm/dL Albumin (3.2-5.2) gm/dL Globulin (2.2-3.7) gm/dL Albumin/Globulin Ratio (1.0-2.3) ED POC Tests ED POC Tests: LYSSA - SARS Antigen Negative Radiology Data Radiology results reviewed: Yes I reviewed the patient's radiology results. Radiology results narrative: Per my interpretation of the chest x-ray, there is no definite infiltrative process. There may be mild vascular congestion. Per my interpretation of the left foot x-ray, there is no acute osseous injury EKG Data EKG #1: EKG attestation: Yes I reviewed and interpreted this EKG. and Yes There are no EKG findings of acute coronary syndrome EKG results narrative: Sinus, rate 107, left axis, QTC 431, RI 209, narrow complex QRS, nonspecific ST and T changes but no sign of acute infarction or ischemia CC TIME Critical Care Time Critical Care Time: Yes Total Critical Care Time: 85 Attestation: Without intervention, patient may have had a deleterious Discharge Plan Patient/Caregiver Discharge Instructions Pt seen by MANAGER DRILLING/PA only: No Clinical Impression: Severe sepsis, Acute UTI Contusion of foot, left Qualifiers: Encounter type: initial encounter Qualified Code(s): S90.32XA - Contusion of left foot, initial encounter Patient Disposition: Xfer As Inpt ([facility]) Condition: Fair Follow up with: Raffi Randolph MD [Primary Care Provider] - Prescriptions: No Action clotrimazole 1 % cream 1 applic topical BID 7 Days Qty: 15 0RF hydrocortisone 1 % cream 1 applic topical BID 7 Days Qty: 28.35 0RF ipratropium bromide 42 mcg (0.06 %) spray,non-aerosol 2 spray intranasal TID-QID PRN (Reason: allergy symptoms) Qty: 15 0RF Rx Instructions: administer into each nostril losartan 50 mg tablet 50 mg PO BID Qty: 180 0RF famotidine [Pepcid] 20 mg tablet 20 mg PO BID Qty: 180 1RF tamsulosin [Flomax] 0.4 mg capsule 0.4 mg PO QDAY Qty: 90 1RF hydrochlorothiazide 25 mg tablet 25 mg PO QAM Qty: 90 1RF Xarelto 15 mg tablet 15 mg PO QDAY Qty: 30 3RF Rx Instructions: must administer with evening meal paroxetine HCl 10 mg tablet 10 mg PO QDAY Qty: 90 1RF ciprofloxacin HCl 500 mg tablet 500 mg PO BID Qty: 14 0RF lorazepam 0.5 mg tablet 0.5 mg PO QDAY PRN Refresh Plus 0.5 % dropperette 1 drp ophthalmic (eye) Q2H aspirin [Adult Low Dose Aspirin] 81 mg tablet,delayed release (DR/EC) 81 mg PO QDAY polyethylene glycol 3350 [Miralax] 17 gram/dose powder 4 g PO QDAY metoprolol tartrate 25 mg tablet 25 mg PO BID 90 Days Qty: 180 1RF cholecalciferol (vitamin D3) 1,000 unit capsule 1,000 unit PO QDAY melatonin 10 mg capsule 10 mg PO HS PRN (Reason: Insomnia) fexofenadine [Elly Allergy] 180 mg tablet 180 mg PO QDAY
[2022-09-22] MEDS ORDERED: AMIODARONE 150 MG/3 ML VIAL IV ONE (21:03)
[2022-09-22 21:19] LABS: Basophils # (Auto) 0.05 K/mcL (0.00-0.30); Basophils % (Auto) 0.3 % (0.0-2.0); Eosinophils # (Auto) 0.07 K/mcL (0.00-0.70); Eosinophils % (Auto) 0.5 % (0.0-7.0); Hematocrit 41.7 % (40.1-51.0); Hemoglobin 14.5 g/dL (13.7-17.5); Lymphocytes # (Auto) 1.52 K/mcL (1.50-4.80); Mean Cell Volume 94.1 fL (80.0-100.0); Mean Corpuscular HGB Conc 34.8 g/dL (31.0-36.0); Mean Platelet Volume 9.9 fL (8.8-12.5); Monocytes # (Auto) 0.43 K/mcL (0.10-0.90); Monocytes % (Auto) 2.8 % (1.0-12.0); Neutrophils % (Auto) 86.1 % (38.0-78.0); Platelet Count 222 K/mcL (140-440); RBC 4.43 M/mcL (4.63-6.08); Red Cell Distribution Width 12.9 % (11.5-14.5); WBC 15.2 K/mcL (4.5-11.0)
[2022-09-22 21:38] LABS: ALT/SGPT 9 U/L (<40); AST/SGOT 12 U/L (<40); Albumin/Globulin Ratio 1.4 (1.0-2.3); Alkaline Phosphatase 78 U/L (39-117); Bilirubin,Total 1.1 mg/dL (0.1-1.0); Blood Urea Nitrogen 26 mg/dL (8-23); Calcium 8.8 mg/dL (8.6-10.4); Carbon Dioxide 23 mmol/L (22-30); Chloride 88 mmol/L (96-108); Globulin 2.8 gm/dL (2.2-3.7); Glomerular Filtration Rate 32; Glucose 125 mg/dL (70-105)
--- NOTE | 2022-09-22 22:03 | Internal Med History&Physical ---
HPI History of Present Illness Patient information: Note initiated : 09/22/22 at 10:01 pm Service Date, if different from initiated Date: [] Patient: Raymond Darnell a 89 y/o M admitted on for Dx with UTI today, fever of 102, agitation. Chief Complaint: [] History of present illness: Mr. Darnell is a 89 year old M Presents to the ED with UTI fevers confusion. Per the she says he gets UTIs every so often end of the signs. He said he started having frequency strong smelling urine. She went to primary care doctor and got an antibiotic. This evening he became a bit more confused and aphasic. He does have a history of stroke and has since then has had trouble occasionally with word finding and also drooping of his left eyelid. He also has a history of seizure disorder but those are gone away since he started using BiPAP at night for sleep apnea. His reports he has a mild chronic cough and has a little bit more of 1 recently but has been having some sinus congestion. Denies shortness of breath. He has had some cognitive decline especially since he was in and out of hospitals for 4 months at 1 point. In the ED was febrile mildly tachycardic. He had a leukocytosis. He had a lactate of 3.8 as well as a sodium of 125. Had a recent echo which was good. In the ED started on IV fluids and antibiotics. Patient dipped to 89% oxygen at ond point in the ED so put on O2. Chest x-ray no obvious focal. I put him on room air while I talked with him and his and his oxygen saturation remained 94-95%. Review of Systems: Pertinent positives as above. Denies headache/nausea/vomiting/chest or abdominal pain/diarrhea. Remaining 10 point review of system reviewed negative PFSH PFSH All Active Problems (Updated 09/22/22 @ 22:03 by Aubrey Mariano MD) Severe sepsis (Acute) Acute UTI (Acute) Contusion of foot, left (Acute) Basal cell carcinoma (Acute) Annual physical exam (Acute) Medicare annual wellness visit, initial (Acute) Atypical squamoproliferative skin lesion (Acute) Rhinitis (Acute) Type 2 diabetes mellitus without complications (Acute) UTI (urinary tract infection) (Acute) Complex sleep apnea syndrome (Chronic) Bradycardia (Acute) Mixed sleep apnea (Chronic) Bilateral lower extremity edema (Acute) Altered mental status (Acute) Hospital discharge follow-up (Acute) Balanitis (Acute) Impaired mobility (Acute) Pressure ulcer of sacral region (Acute) Intracranial meningioma (Acute) Actinic keratosis (Acute) Neoplasm of uncertain behavior of skin (Acute) Scar conditions/skin fibrosis (Acute) 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) Basal cell carcinoma (Acute) Negron-Dieog syndrome (Acute) Arthritis (Acute) Inguinal hernia (Acute) TIA (transient ischemic attack) (Acute) Meningioma (Acute) Cognitive impairment (Acute) CAD (coronary artery disease) (Acute) DVT (deep venous thrombosis) (Acute) Dry eye syndrome of bilateral lacrimal glands (Acute) Seizure (Acute) Facial lesion (Acute) MICHELLE (obstructive sleep apnea) (Acute) Weakness (Acute) Community acquired pneumonia (Acute) UTI (urinary tract infection) (Acute) SJS-TEN overlap syndrome (Acute) YESY (acute kidney injury) (Acute) Weakness (Acute) Chronic anticoagulation (Chronic) Grand mal seizure (Acute) Brain lesion (Acute) Brain edema (Acute) CKD (chronic kidney disease) stage 3, GFR 30-59 ml/min (Chronic) TIA (transient ischemic attack) (Acute) Leukocytosis (Acute) Polycythemia (Acute) Tachycardia (Acute) Hypertensive renal disease (Chronic ~1960) Hyponatremia (Chronic) Chronic kidney disease, stage III (moderate) (Chronic) Vertigo (Acute) History of skin cancer (Acute) Screening for colon cancer (Acute) Rhinitis, allergic (Acute) Renal insufficiency (Acute) Memory loss (Acute) Knee pain (Acute) Hypertension, essential (Chronic) Hypercholesterolemia (Acute) GERD (gastroesophageal reflux disease) (Chronic) Gastritis, acute (Acute) BPH (benign prostatic hypertrophy) with urinary obstruction (Acute) Anxiety disorder (Acute) Medical History Actinic keratosis Anxiety disorder Arthritis Balanitis Basal cell carcinoma Bilateral lower extremity edema BPH (benign prostatic hypertrophy) with urinary obstruction Bradycardia CAD (coronary artery disease) Chronic anticoagulation Eliquis; due to DVT and PE. Chronic kidney disease, stage III (moderate) Cognitive impairment Dry eye syndrome of bilateral lacrimal glands DVT (deep venous thrombosis) Facial lesion Left Gastritis, acute GERD (gastroesophageal reflux disease) History of skin cancer Left face Hospital discharge follow-up Hypercholesterolemia Hypertension, essential Goal BP 130/80 Hypertensive renal disease (~1960) Goal BP 130/80 Hyponatremia mild hyponatremia while on HCTZ Na at 134 improved to 140 Will monitor for now Impaired mobility Inguinal hernia Intracranial meningioma Knee pain Right Leukocytosis 05/31/2015 - Dr. 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 Zavala TIA (transient ischemic attack) TIA (transient ischemic attack) Type 2 diabetes mellitus without complications UTI (urinary tract infection) Vertigo Surgical History History of colonoscopy (03/13/14) [facility] History of heart artery stent History of hernia repair Hernia repair left and right many years ago History of knee replacement History of prostate surgery History of tonsillectomy Family History Mother , at 97 Family history of hypertension Father , 97 Pneumonia Sister Family history of hypertension Social History marital status: occupational status: retired smoking status: Never smoker alcohol intake frequency: does not drink substance use type: does not use MEDS/ALLERGIES Home Medications and Allergies Home Medications Medication Instructions Recorded Confirmed Type cholecalciferol (vitamin D3) 25 1,000 unit PO QDAY 11/06/16 09/07/22 History mcg (1,000 unit) capsule melatonin 10 mg capsule 10 mg PO HS PRN Insomnia 07/29/19 09/07/22 History fexofenadine 180 mg tablet 180 mg PO QDAY 03/29/21 09/07/22 History (Elly Allergy) lorazepam 0.5 mg tablet 0.5 mg PO QDAY PRN 06/21/21 09/07/22 History carboxymethylcellulose sodium 0.5 1 drp ophthalmic (eye) Q2H 06/24/21 09/07/22 History % eye drops in a dropperette (Refresh Plus) aspirin 81 mg tablet,delayed 81 mg PO QDAY 10/04/21 09/07/22 History release (Adult Low Dose Aspirin) polyethylene glycol 3350 17 4 g PO QDAY 02/08/22 09/07/22 History gram/dose oral powder (Miralax) clotrimazole 1 % topical cream 1 applic topical BID 1 week #15 03/31/22 09/07/22 Rx grams hydrocortisone 1 % topical cream 1 applic topical BID 1 week #28.35 03/31/22 09/07/22 Rx grams metoprolol tartrate 25 mg tablet 25 mg PO BID 90 days #180 tabs 04/20/22 09/07/22 Rx ipratropium bromide 42 mcg (0.06 2 spray intranasal TID-QID PRN 06/16/22 Rx %) nasal spray allergy symptoms #15 mL losartan 50 mg tablet 50 mg PO BID #180 tabs 07/18/22 09/07/22 Rx famotidine 20 mg tablet (Pepcid) 20 mg PO BID #180 tabs 07/25/22 09/07/22 Rx tamsulosin 0.4 mg capsule (Flomax) 0.4 mg PO QDAY #90 caps 08/17/22 09/07/22 Rx hydrochlorothiazide 25 mg tablet 25 mg PO QAM #90 tabs 08/21/22 09/07/22 Rx rivaroxaban 15 mg tablet (Xarelto) 15 mg PO QDAY #30 tabs 09/14/22 Rx paroxetine HCl 10 mg tablet 10 mg PO QDAY #90 tabs 09/21/22 Rx ciprofloxacin HCl 500 mg tablet 500 mg PO BID #14 tabs 09/22/22 Rx Allergies Allergy/AdvReac Type Severity Reaction Status Date / Time carbamazepine Allergy Severe Seizure Verified 09/07/22 14:15 lacosamide [From Vimpat] Allergy Severe Seizure Verified 09/07/22 14:15 levetiracetam Allergy Severe Seizure Verified 09/07/22 14:15 sulfamethoxazole Allergy Severe Rogelio Verified 09/07/22 14:15 [From Bactrim] Diego Syndrome trimethoprim [From Bactrim] Allergy Severe Rogelio Verified 09/07/22 14:15 Diego Syndrome Penicillins Allergy Unknown Unknown Verified 09/07/22 14:15 lamotrigine AdvReac Severe SJ Syndrome Verified 09/07/22 14:15 EXAM Constitutional Vitals: Temp Pulse Resp BP Pulse Ox O2 Del Method O2 Flow Rate 99.8 F H 88 24 H 126/65 97 Nasal Cannula 1.5 09/22/22 21:52 09/22/22 21:52 09/22/22 21:52 09/22/22 21:52 09/22/22 21:52 09/22/22 21:52 09/22/22 20:48 Exam: General: Awake, No acute Distress Eyes/N/T: EOMI, PERRL, dry MM Head/Neck: neck supple, normocephalic atraumatic CV: RRR, No murmurs, normal s1/s2 Pulm: Clear b/l, no wheezing/rhonchi/rales Abd: soft, nontender, +BS x4 Ext: no clubbing/cyanosis/edema Neuro: Alert, moves all extremities, sensations intact b/l upper/lower, patient answers questions appropriately although slowly. Skin: warm/dry DATA Data Completed and Pending Labs: Labs from last 24 hours 09/22/22 09/22/22 09/22/22 20:31 20:30 20:30 WBC 15.2 H RBC 4.43 L Hgb 14.5 Hct 41.7 POC Hct 44.0 MCV 94.1 MCH 32.7 MCHC 34.8 RDW 12.9 Plt Count 222 MPV 9.9 Immature Gran % (Auto) 0.3 Neut % (Auto) 86.1 H Lymph % (Auto) 10.0 L Wilkinson % (Auto) 2.8 Eos % (Auto) 0.5 Baso % (Auto) 0.3 Lymph # (Auto) 1.52 Wilkinson # (Auto) 0.43 Eos # (Auto) 0.07 Baso # (Auto) 0.05 Immature Gran # 0.04 Absolute Neutrophils 13.07 H POC VBG pH POC VBG pCO2 at Temp POC VBG pO2 POC VBG HCO3 POC VBG Total CO2 POC Venous O2 Sat POC VBG Base Excess VBG Lactic Acid POC Sodium 131 L Sodium 125 L POC Potassium 3.7 Potassium 3.6 POC Chloride 95 L Chloride 88 L Carbon Dioxide 23 POC Total CO2 25.0 Anion Gap 14.0 POC BUN 29 H BUN 26 H Creatinine 1.8 H POC Creatinine 2.0 H GFR Calculation 32 Glucose 125 H POC Glucose 130 H Calcium 8.8 POC WB Ioniz Calcium 1.11 L Total Bilirubin 1.1 H AST 12 ALT 9 Alkaline Phosphatase 78 Total Protein 6.8 Albumin 4.0 Globulin 2.8 Albumin/Globulin Ratio 1.4 09/22/22 20:29 WBC RBC Hgb Hct POC Hct MCV MCH MCHC RDW Plt Count MPV Immature Gran % (Auto) Neut % (Auto) Lymph % (Auto) Wilkinson % (Auto) Eos % (Auto) Baso % (Auto) Lymph # (Auto) Wilkinson # (Auto) Eos # (Auto) Baso # (Auto) Immature Gran # Absolute Neutrophils POC VBG pH 7.37 POC VBG pCO2 at Temp 42.1 POC VBG pO2 26 POC VBG HCO3 24.4 POC VBG Total CO2 26.0 POC Venous O2 Sat 46.0 POC VBG Base Excess -1.0 VBG Lactic Acid 3.8 H POC Sodium Sodium POC Potassium Potassium POC Chloride Chloride Carbon Dioxide POC Total CO2 Anion Gap POC BUN BUN Creatinine POC Creatinine GFR Calculation Glucose POC Glucose Calcium POC WB Ioniz Calcium Total Bilirubin AST ALT Alkaline Phosphatase Total Protein Albumin Globulin Albumin/Globulin Ratio A/P Narrative A/P Narrative: A: *UTI, complicated: *Sepsis: *Encephalopathy: 2/2 above *Hyperlactatemia: *Hyponatremia: *Sleep apnea: On BiPAP *h/o Sz d/o: *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 *HTN: *h/o CVA with residual mild expressive aphasia: *Anxiety/depression: *GERD: P: -IV antibiotics, pending BC/UC -IVF, follow-up lactate -Monitor I&O and urine output, fluid balance -Follow-up CBC and chemistry including trending sodium -Avoid nephrotoxic medications -Continue home BiPAP -cont home asa -cont home BB, hold hctz for hypontremia -Home medication reconciliation -PT/OT -CM for placement needs -ppx: xaralto / home H2 DNR/DNI Time Spent With Patient Time: Total time spent is greater than 50% in coordination of care (as documented) at patient's floor/unit and/or counseling patient: Initial: Total time with patient: 75 - 90 minutes
[2022-09-22 23:38] LABS: Appearance,Urine SL CLOUDY (Clear); Bacteria,Urine MOD /hpf (0); Bilirubin,Urine NEGATIVE (Negative); Color,Urine LT. YELLOW; Culture Indicated,Urine yes; Glucose,Urine (UA) NEGATIVE (Negative); Ketones,Urine NEGATIVE (Negative); Leukocyte Esterase,Urine TRACE /uL (Negative); Nitrate,Urine NEGATIVE (Negative); PH,Urine 5.5 (5.0-9.0); Protein,Urine NEGATIVE (Negative); Specific Gravity,Urine <= 1.005 (1.000-1.035); Urine Blood MODERATE ery/mcL (Negative); Urine RBC 5 /hpf (0-3); Urine Squamous Epithelial Cell < 1 /hpf (0-4); Urine WBC 27 /hpf (0-4); Urobilinogen,Urine Normal
[2022-09-22] MEDS ORDERED: SENNOSIDES 1 TABLET PO PRN (23:47)
[2022-09-22] MEDS ORDERED: MAGNESIUM SULFATE 2 GM/50 ML BAG IV PRN (23:47)
[2022-09-22] MEDS ORDERED: METOPROLOL TARTRATE 5 MG/5 ML VIAL IV PRN (23:47)
[2022-09-22] MEDS ORDERED: POLYETHYLENE GLYCOL 3350 17 GM PACKET PO PRN (23:47)
[2022-09-22] MEDS ORDERED: ONDANSETRON 4 MG/2 ML VIAL IV PRN (23:47)
[2022-09-22] MEDS ORDERED: IPRATROPIUM/ALBUTEROL 3 ML AMPUL.NEB NEB PRN (23:47)
[2022-09-22] MEDS ORDERED: POTASSIUM CHLORIDE 20 MEQ TABLET PO PRN ×2 (23:47)
[2022-09-22] MEDS ORDERED: cefTRIAXone 1 GM in DEXTROSE 5% IN WATER 50 ML IV SCH (23:47)
[2022-09-22] MEDS ORDERED: ACETAMINOPHEN 325 MG TABLET PO PRN (23:47)
[2022-09-22] MEDS ORDERED: POTASSIUM CHLORIDE 40 MEQ in DEXTROSE 5% IN WATER 500 ML IV PRN (23:47)
[2022-09-23] MEDS: 0.9 % SODIUM CHLORIDE 1,000 ML IV SCH ×2 (00:40→09:36)
--- NOTE | 2022-09-23 04:01 | XRay Report ---
CLINICAL INFORMATION: Cough COMPARISON: 08/01/2021 TECHNIQUE: Portable FINDINGS: The heart size, mediastinum and pulmonary vessels are unremarkable. Small infiltrate as developed in the left medial base. There is minor right basilar atelectasis.. There are no effusions. The bones and soft tissues are within normal limits. IMPRESSION: Small left basilar infiltrate. Interpreted and Authenticated by: Marquis Jacob 09/23/22
--- NOTE | 2022-09-23 04:04 | XRay Report ---
CLINICAL INFORMATION: Trauma COMPARISON: None FINDINGS: No fracture identified. Moderate hallux valgus, metatarsus abductus, hammertoe deformities first through fifth digits and pes cavus deformities appreciated. Joint spaces are normal in width and alignment. Soft tissues are unremarkable. IMPRESSION: No fracture identified. Other chronic findings as described Interpreted and Authenticated by: Marquis Jacob 09/23/22
[2022-09-23] MEDS: 0.9 % SODIUM CHLORIDE 10 ML SYRINGE IV SCH ×3 (06:00→20:18)
[2022-09-23 06:41] LABS: Basophils # (Auto) 0.03 K/mcL (0.00-0.30); Basophils % (Auto) 0.2 % (0.0-2.0); Eosinophils # (Auto) 0.09 K/mcL (0.00-0.70); Eosinophils % (Auto) 0.7 % (0.0-7.0); Hematocrit 35.2 % (40.1-51.0); Lymphocytes # (Auto) 2.34 K/mcL (1.50-4.80); Lymphocytes % (Auto) 18.2 % (15.5-49.0); Mean Corpuscular HGB Conc 34.1 g/dL (31.0-36.0); Mean Platelet Volume 9.8 fL (8.8-12.5); Monocytes # (Auto) 1.24 K/mcL (0.10-0.90); Monocytes % (Auto) 9.6 % (1.0-12.0); Neutrophils % (Auto) 70.8 % (38.0-78.0); Platelet Count 181 K/mcL (140-440); RBC 3.63 M/mcL (4.63-6.08); WBC 12.9 K/mcL (4.5-11.0)
[2022-09-23 07:08] LABS: ALT/SGPT 6 U/L (<40); AST/SGOT 10 U/L (<40); Albumin/Globulin Ratio 1.3 (1.0-2.3); Alkaline Phosphatase 60 U/L (39-117); Bilirubin,Direct 0.2 mg/dL (<0.3); Bilirubin,Total 0.8 mg/dL (0.1-1.0); Blood Urea Nitrogen 26 mg/dL (8-23); Calcium 7.6 mg/dL (8.6-10.4); Carbon Dioxide 21 mmol/L (22-30); Chloride 99 mmol/L (96-108); Globulin 2.3 gm/dL (2.2-3.7); Glomerular Filtration Rate 32; Glucose 117 mg/dL (70-105); Lactate Dehydrogenase 179 U/L (135-225); Phosphorous 2.4 mg/dL (2.5-4.5); Triglycerides 60 mg/dL (<150); Uric Acid 7.1 mg/dL (2.5-8.0)
[2022-09-23] MEDS ORDERED: LORazepam 0.5 MG TABLET PO PRN (08:01)
--- NOTE | 2022-09-23 08:02 | Internal Med Progress Note ---
SUBJECTIVE Subjective Patient information: Note initiated : 09/23/22 at 7:58 am Service Date, if different from initiated Date: [] Patient: Raymond Darnell a 89 y/o M admitted on 09/22/22 for Dx with UTI today, fever of 102, agitation. Chief Complaint: [] Interval history: History of present illness: Mr. Darnell is a 89 year old M Presents to the ED with UTI fevers confusion. Per the she says he gets UTIs every so often end of the signs. He said he started having frequency strong smelling urine. She went to primary care doctor and got an antibiotic. This evening he became a bit more confused and aphasic. He does have a history of stroke and has since then has had trouble occasionally with word finding and also drooping of his left eyelid. He also has a history of seizure disorder but those are gone away since he started using BiPAP at night for sleep apnea. His reports he has a mild chronic cough and has a little bit more of 1 recently but has been having some sinus congestion. Denies shortness of breath. He has had some cognitive decline especially since he was in and out of hospitals for 4 months at 1 point. In the ED was febrile mildly tachycardic. He had a leukocytosis. He had a lactate of 3.8 as well as a sodium of 125. Had a recent echo which was good. In the ED started on IV fluids and antibiotics. Patient dipped to 89% oxygen at ond point in the ED so put on O2. Chest x-ray no obvious focal. I put him on room air while I talked with him and his and his oxygen saturation remained 94-95%. 09/23 Patient sitting up in chair eating breakfast. Seems to be feeling a little bit better. Leukocytosis slightly improved. Hyponatremia noted. at bedside. Pending urine and blood cultures. Review of Systems: denies headache/fever/chills/nausea/vomiting/chest or abdominal pain/cough/dys pnea/diarrhea. Otherwise see above. Constitutional Vitals: Vital Signs Temp Pulse Resp BP Pulse Ox O2 Del Method O2 Flow Rate 98.7 F 64 17 98/52 97 BiPAP 1.5 09/23/22 05:12 09/23/22 05:12 09/23/22 05:12 09/23/22 05:12 09/23/22 05:12 09/23/22 05:12 09/22/22 20:48 Period Temp Pulse Resp BP Sys/Gale Pulse Ox O2 Del Method O2 Flow Rate Last 24 Hr 98.1 F-102.8 F 59-110 15-25 92-157/50-91 91-98 BiPAP-Room Air 1.5 Intake and Output 09/22/22 09/23/22 09/23/22 19:59 03:59 11:59 Intake Total 1999 Output Total 1 1 Balance 1998 Weight 87.589 kg Intake & Output: Intake & Output 09/22/22 09/23/22 09/23/22 19:59 03:59 11:59 Intake Total 1999 Output Total 1 1 Balance 1998 Weight 87.589 kg Intake: IV 1999 Sodium Chloride 0.9% 1,000 ml @ 2000 Wide Open IV BOLUS ONE Rx#: [id number] Output: # of times incontinent of urine 1 1 Other: Urine Odor Normal # Voids 1 Exam: General: Awake, No acute Distress Eyes/N/T: EOMI, Head/Neck: neck supple, CV: RRR, No murmurs, Pulm: Clear b/l, no wheezing/rhonchi/rales Abd: soft, nontender, +BS x4 Ext: no clubbing/cyanosis/edema Neuro: Alert, moves all extremities, patient answering questions better today and more responsive. Skin: warm/dry OBJ DATA Labs 09/23/22 05:00 09/23/22 05:00 Labs: Abnormal Lab Results 09/23/22 09/23/22 09/22/22 05:00 05:00 22:45 WBC 12.9 H RBC 3.63 L Hgb 12.0 L Hct 35.2 L Neut % (Auto) Lymph % (Auto) Pender # (Auto) 1.24 H Immature Gran # 0.06 H Absolute Neutrophils 9.13 H VBG Lactic Acid POC Sodium Sodium 130 L POC Chloride Chloride Carbon Dioxide 21 L POC BUN BUN 26 H Creatinine 1.8 H POC Creatinine Glucose 117 H POC Glucose Calcium 7.6 L POC WB Ioniz Calcium Phosphorus 2.4 L Total Bilirubin GGT 7 L Total Protein 5.3 L Albumin 3.0 L Urine Appearance Sl cloudy A Urine Occult Blood Moderate A Ur Leukocyte Esterase Trace A Urine RBC 5 H Urine WBC 27 H Urine Bacteria Mod A 09/22/22 09/22/22 09/22/22 20:31 20:30 20:30 WBC 15.2 H RBC 4.43 L Hgb Hct Neut % (Auto) 86.1 H Lymph % (Auto) 10.0 L Pender # (Auto) Immature Gran # Absolute Neutrophils 13.07 H VBG Lactic Acid POC Sodium 131 L Sodium 125 L POC Chloride 95 L Chloride 88 L Carbon Dioxide POC BUN 29 H BUN 26 H Creatinine 1.8 H POC Creatinine 2.0 H Glucose 125 H POC Glucose 130 H Calcium POC WB Ioniz Calcium 1.11 L Phosphorus Total Bilirubin 1.1 H GGT Total Protein Albumin Urine Appearance Urine Occult Blood Ur Leukocyte Esterase Urine RBC Urine WBC Urine Bacteria 09/22/22 20:29 WBC RBC Hgb Hct Neut % (Auto) Lymph % (Auto) Pender # (Auto) Immature Gran # Absolute Neutrophils VBG Lactic Acid 3.8 H POC Sodium Sodium POC Chloride Chloride Carbon Dioxide POC BUN BUN Creatinine POC Creatinine Glucose POC Glucose Calcium POC WB Ioniz Calcium Phosphorus Total Bilirubin GGT Total Protein Albumin Urine Appearance Urine Occult Blood Ur Leukocyte Esterase Urine RBC Urine WBC Urine Bacteria Meds: Medications Acetaminophen (Acetaminophen 325 Mg Tablet) 650 mg PO Q6HP PRN; Protocol PRN Reason: Per Pain Protocol/Fever > 101 Albuterol/Ipratropium (Ipratropium/Albuterol 3 Ml Ampul.Neb) 3 ml NEB Q4HP PRN PRN Reason: Shortness Of Breath Ceftriaxone Sodium (Ceftriaxone 1 Gm Vial) 1 gm IV Q24H [facility] Docusate Sodium (Docusate Sodium 100 Mg Capsule) 100 mg PO BID [facility] Magnesium Sulfate (Magnesium Sulfate) 2 gm in 50 mls @ 50 mls/hr IV UD PRN PRN Reason: Magnesium </= 1.6 Potassium Chloride 40 meq/ (Dextrose) 520 mls @ 130 mls/hr IV UD PRN PRN Reason: Potassium < 3 Sodium Chloride (Sodium Chloride 0.9%) 1,000 mls @ 100 mls/hr IV .Q10H [facility] Stop: 09/23/22 09:46 Last Admin: 09/23/22 00:40 Dose: 100 mls/hr Metoprolol Tartrate (Metoprolol Tartrate 5 Mg/5 Ml Vial) 5 mg IV Q2HP PRN PRN Reason: Tachyarrhythmias HR>110 Ondansetron HCl (Ondansetron 4 Mg/2 Ml Vial) 4 mg IV Q4HP PRN PRN Reason: Nausea And Vomiting Polyethylene Glycol (Polyethylene Glycol 3350 17 Gm Packet) 17 gm PO DAILYP PRN PRN Reason: Constipation Potassium Chloride (Potassium Chloride 20 Meq Tablet) 40 meq PO UD PRN PRN Reason: Potassium < 3 Potassium Chloride (Potassium Chloride 20 Meq Tablet) 40 meq PO UD PRN PRN Reason: Potssium is 3-3.5 Senna (Sennosides 1 Tablet) 2 tab PO DAILYP PRN PRN Reason: Constipation Sodium Chloride (0.9 % Sodium Chloride 10 Ml Syringe) 10 ml IV Q8 [facility] Last Admin: 09/23/22 06:00 Dose: Not Given A/P Narrative A/P Narrative: A: *UTI(GNB), complicated: *Sepsis: -last fever yesterday at 2046, leukocytosis *Encephalopathy: 2/2 above, improving *Hyperlactatemia: improving *Hyponatremia: *Sleep apnea: On BiPAP *h/o Sz d/o: *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 *HTN: *h/o CVA with residual mild expressive aphasia: *Anxiety/depression: *GERD: P: -IV antibiotics, pending BC/UC -IVF, follow-up lactate -Monitor I&O and urine output, fluid balance -Follow-up CBC and chemistry including trending sodium -Avoid nephrotoxic medications -Continue home BiPAP qhs -cont home asa -hold home BB/ARB for soft BP, hold hctz for hypontremia -PT/OT -CM for placement needs -ppx: xaralto / home H2 DNR/DNI Time Spent With Patient Time: Total time spent is greater than 50% in coordination of care (as documented) at patient's floor/unit and/or counseling patient: Subsequent: Total time with patient: 50 - 65 Minutes QUALITY VTE Deep Vein Thrombosis/Pulmonary Embolism Present on Admission: No
[2022-09-23] MEDS ORDERED: MELATONIN 3 MG TABLET PO PRN (08:17)
[2022-09-23] MEDS ORDERED: METOPROLOL TARTRATE 25 MG TABLET PO SCH (09:00)
[2022-09-23] MEDS ORDERED: [UNRECOGNIZED DRUG - OTHER] PO SCH (09:00)
[2022-09-23] MEDS ORDERED: LOSARTAN 50 MG TABLET PO SCH (09:00)
[2022-09-23] MEDS: cefTRIAXone 1 GM VIAL IV SCH (09:09)
[2022-09-23] MEDS: TAMSULOSIN 0.4 MG CAPSULE PO SCH (09:09)
[2022-09-23] MEDS: ASPIRIN 81 MG TAB.CHEW PO SCH (09:09)
[2022-09-23] MEDS: DOCUSATE SODIUM 100 MG CAPSULE PO SCH ×2 (09:09→20:17)
[2022-09-23] MEDS: FAMOTIDINE 20 MG TABLET PO SCH ×2 (09:09→20:17)
[2022-09-23] MEDS: PARoxetine 20 MG TABLET PO SCH (09:10)
[2022-09-23] MEDS: RIVAROXABAN 15 MG TABLET PO SCH ×3 (09:10→17:37)
--- NOTE | 2022-09-23 14:23 | Discharge Summary ---
Discharge Provider Provider IMPORTANT FOLLOW-UP INFORMATION FOR PCP: P: -d/c on cipro -cont home BB, hold ARB for soft BP, hold hctz for hypontremia -pt to Monitor blood pressure twice daily, keep log and bring to PCP Patient information: Note initiated : 09/23/22 at 2:21 pm Service Date, if different from initiated Date: [] Patient: Raymond Darnell 89 y/o M admitted on 09/22/22 for Dx with UTI today, fever of 102, agitation. Chief Complaint: [] Date of admission: 09/22/22 23:25 Discharge date: 09/25/22 Primary care physician: Raffi Randolph MD Consults: 09/22/22 Consult to Physician [CONS] Stat Comment: Consulting Provider: Clint Zavala Reason For Exam: Physician to Consult COURSE Hospital Course Hospital course: History of present illness: Mr. Darnell is a 89 year old M Presents to the ED with UTI fevers confusion. Per the she says he gets UTIs every so often end of the signs. He said he started having frequency strong smelling urine. She went to primary care doctor and got an antibiotic. This evening he became a bit more confused and aphasic. He does have a history of stroke and has since then has had trouble occasionally with word finding and also drooping of his left eyelid. He also has a history of seizure disorder but those are gone away since he started using BiPAP at night for sleep apnea. His reports he has a mild chronic cough and has a little bit more of 1 recently but has been having some sinus congestion. Denies shortness of breath. He has had some cognitive decline especially since he was in and out of hospitals for 4 months at 1 point. In the ED was febrile mildly tachycardic. He had a leukocytosis. He had a lactate of 3.8 as well as a sodium of 125. Had a recent echo which was good. In the ED started on IV fluids and antibiotics. Patient dipped to 89% oxygen at ond point in the ED so put on O2. Chest x-ray no obvious focal. I put him on room air while I talked with him and his and his oxygen saturation remained 94-95%. 09/23 Patient sitting up in chair eating breakfast. Seems to be feeling a little bit better. Leukocytosis slightly improved. Hyponatremia noted. at bedside. Pending urine and blood cultures. 09/24 Patient seems to be doing well. Alert and awake. at bedside. Urine cultures are gram-negative bacillus pending final identification. Leukocytosis resolved. Hyponatremia present but better. Patient complaining of leg cramps. 09/25 Doing well. No overnight event or new complaints. Spasms improved from yesterday after Robaxin and Benadryl. at bedside and patient sleeping. 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 *HTN: *h/o CVA with residual mild expressive aphasia: *Anxiety/depression: *GERD: P: -d/c on cipro -cont home BB, hold ARB for soft BP, hold hctz for hypontremia -Monitor blood pressure twice daily, keep log and bring to PCP Discharge diagnosis: UTI sepsis Encephalopathy Secondary discharge diagnosis: Hyponatremia sleep apnea seizure disorder chronic kidney disease history of DVT PE hypertension history of stroke anxiety depression GERD Time Spent with Patient Time attestation: Total time spent providing and/or coordinating discharge services: Time spent: Greater than 30 minutes EXAM Constitutional Vitals: Temp Pulse Resp BP Pulse Ox O2 Del Method O2 Flow Rate 97.5 F 61 13 90/49 98 BiPAP 15 09/23/22 12:30 09/23/22 14:05 09/23/22 14:05 09/23/22 13:01 09/23/22 14:05 09/23/22 12:30 09/23/22 12:30 Discharge Data Data Completed and Pending Labs on day of discharge: Labs from last 24 hours 09/23/22 09/23/22 09/23/22 05:00 05:00 04:33 WBC 12.9 H RBC 3.63 L Hgb 12.0 L Hct 35.2 L POC Hct MCV 97.0 MCH 33.1 MCHC 34.1 RDW 13.0 Plt Count 181 MPV 9.8 Immature Gran % (Auto) 0.5 Neut % (Auto) 70.8 Lymph % (Auto) 18.2 [place] % (Auto) 9.6 Eos % (Auto) 0.7 Baso % (Auto) 0.2 Lymph # (Auto) 2.34 [place] # (Auto) 1.24 H Eos # (Auto) 0.09 Baso # (Auto) 0.03 Immature Gran # 0.06 H Absolute Neutrophils 9.13 H POC VBG pH POC VBG pCO2 at Temp POC VBG pO2 POC VBG HCO3 POC VBG Total CO2 POC Venous O2 Sat POC VBG Base Excess VBG Lactic Acid 0.8 POC Sodium Sodium 130 L POC Potassium Potassium 3.6 POC Chloride Chloride 99 Carbon Dioxide 21 L POC Total CO2 Anion Gap 10.0 POC BUN BUN 26 H Creatinine 1.8 H POC Creatinine GFR Calculation 32 Glucose 117 H POC Glucose Uric Acid 7.1 Calcium 7.6 L POC WB Ioniz Calcium Phosphorus 2.4 L Magnesium 1.8 Total Bilirubin 0.8 Direct Bilirubin 0.2 GGT 7 L AST 10 ALT 6 Alkaline Phosphatase 60 Lactate Dehydrogenase 179 Total Protein 5.3 L Albumin 3.0 L Globulin 2.3 Albumin/Globulin Ratio 1.3 Triglycerides 60 Urine Color Urine Appearance Urine pH Ur Specific [place] Urine Protein Urine Glucose (UA) Urine Ketones Urine Occult Blood Urine Nitrate Urine Bilirubin Urine Urobilinogen Ur Leukocyte Esterase Urine RBC Urine WBC Ur Squamous Epith Cells Urine Bacteria Ur Culture Indicated? 09/22/22 09/22/22 09/22/22 22:45 20:31 20:30 WBC RBC Hgb Hct POC Hct 44.0 MCV MCH MCHC RDW Plt Count MPV Immature Gran % (Auto) Neut % (Auto) Lymph % (Auto) [place] % (Auto) Eos % (Auto) Baso % (Auto) Lymph # (Auto) [place] # (Auto) Eos # (Auto) Baso # (Auto) Immature Gran # Absolute Neutrophils POC VBG pH POC VBG pCO2 at Temp POC VBG pO2 POC VBG HCO3 POC VBG Total CO2 POC Venous O2 Sat POC VBG Base Excess VBG Lactic Acid POC Sodium 131 L Sodium 125 L POC Potassium 3.7 Potassium 3.6 POC Chloride 95 L Chloride 88 L Carbon Dioxide 23 POC Total CO2 25.0 Anion Gap 14.0 POC BUN 29 H BUN 26 H Creatinine 1.8 H POC Creatinine 2.0 H GFR Calculation 32 Glucose 125 H POC Glucose 130 H Uric Acid Calcium 8.8 POC WB Ioniz Calcium 1.11 L Phosphorus Magnesium Total Bilirubin 1.1 H Direct Bilirubin GGT AST 12 ALT 9 Alkaline Phosphatase 78 Lactate Dehydrogenase Total Protein 6.8 Albumin 4.0 Globulin 2.8 Albumin/Globulin Ratio 1.4 Triglycerides Urine Color Lt. yellow Urine Appearance Sl cloudy A Urine pH 5.5 Ur Specific [place] <= 1.005 Urine Protein Negative Urine Glucose (UA) Negative Urine Ketones Negative Urine Occult Blood Moderate A Urine Nitrate Negative Urine Bilirubin Negative Urine Urobilinogen Normal Ur Leukocyte Esterase Trace A Urine RBC 5 H Urine WBC 27 H Ur Squamous Epith Cells < 1 Urine Bacteria Mod A Ur Culture Indicated? yes 09/22/22 09/22/22 09/22/22 20:30 20:29 00:05 WBC 15.2 H RBC 4.43 L Hgb 14.5 Hct 41.7 POC Hct MCV 94.1 MCH 32.7 MCHC 34.8 RDW 12.9 Plt Count 222 MPV 9.9 Immature Gran % (Auto) 0.3 Neut % (Auto) 86.1 H Lymph % (Auto) 10.0 L [place] % (Auto) 2.8 Eos % (Auto) 0.5 Baso % (Auto) 0.3 Lymph # (Auto) 1.52 [place] # (Auto) 0.43 Eos # (Auto) 0.07 Baso # (Auto) 0.05 Immature Gran # 0.04 Absolute Neutrophils 13.07 H POC VBG pH 7.37 POC VBG pCO2 at Temp 42.1 POC VBG pO2 26 POC VBG HCO3 24.4 POC VBG Total CO2 26.0 POC Venous O2 Sat 46.0 POC VBG Base Excess -1.0 VBG Lactic Acid 3.8 H 1.0 POC Sodium Sodium POC Potassium Potassium POC Chloride Chloride Carbon Dioxide POC Total CO2 Anion Gap POC BUN BUN Creatinine POC Creatinine GFR Calculation Glucose POC Glucose Uric Acid Calcium POC WB Ioniz Calcium Phosphorus Magnesium Total Bilirubin Direct Bilirubin GGT AST ALT Alkaline Phosphatase Lactate Dehydrogenase Total Protein Albumin Globulin Albumin/Globulin Ratio Triglycerides Urine Color Urine Appearance Urine pH Ur Specific [place] Urine Protein Urine Glucose (UA) Urine Ketones Urine Occult Blood Urine Nitrate Urine Bilirubin Urine Urobilinogen Ur Leukocyte Esterase Urine RBC Urine WBC Ur Squamous Epith Cells Urine Bacteria Ur Culture Indicated? Discharge Plan Patient/Caregiver Discharge Instructions Activity: increase activity as tolerated Diet: Regular Diet Instructions: Ciprofloxacin (By mouth), Urinary Tract Infection in Men (GEN), Hyponatremia (GEN), Sepsis (GEN), Encephalopathy (GEN) Activity Restrictions/Additional Instructions: -pt to Monitor blood pressure twice daily, keep log and bring to PCP. Prescriptions: New ciprofloxacin HCl [Cipro] 500 mg tablet 500 mg PO BID Qty: 7 0RF metoprolol tartrate 25 mg tablet 25 mg PO BID Qty: 1 0RF methocarbamol 500 mg tablet 500 mg PO TID PRN (Reason: spasms/cramps) Qty: 10 0RF Continued ipratropium bromide 42 mcg (0.06 %) spray,non-aerosol 2 spray intranasal TID-QID PRN (Reason: allergy symptoms) Qty: 15 0RF Rx Instructions: administer into each nostril famotidine [Pepcid] 20 mg tablet 20 mg PO BID Qty: 180 1RF tamsulosin [Flomax] 0.4 mg capsule 0.4 mg PO QDAY Qty: 90 1RF Xarelto 15 mg tablet 15 mg PO QDAY Qty: 30 3RF Rx Instructions: must administer with evening meal paroxetine HCl 10 mg tablet 10 mg PO QDAY Qty: 90 1RF lorazepam 0.5 mg tablet 0.5 mg PO QDAY PRN (Reason: Agitation) aspirin [Adult Low Dose Aspirin] 81 mg tablet,delayed release (DR/EC) 81 mg PO QDAY polyethylene glycol 3350 [Miralax] 17 gram/dose powder 4 g PO QDAY Patient Comments: spouse states 1 tsp in water cholecalciferol (vitamin D3) 1,000 unit capsule 1,000 unit PO QDAY melatonin 10 mg capsule 10 mg PO HS PRN (Reason: Insomnia) fexofenadine [Elly Allergy] 180 mg tablet 180 mg PO QDAY Discontinued hydrochlorothiazide 25 mg tablet 25 mg PO QAM Qty: 90 1RF ciprofloxacin HCl 500 mg tablet 500 mg PO BID Qty: 14 0RF metoprolol tartrate 25 mg tablet 25 mg PO BID 90 Days Qty: 180 1RF losartan 50 mg tablet 50 mg PO BID Follow Up Plan Follow up with: Raffi Randolph MD [Primary Care Provider] - (Your Primary Care Physician will contact you to schedule an appointment.) Patient Disposition: Home Health Service Prognosis: Fair Overall status at discharge: patient is progressing back to baseline Discharge Orders: Discharge Order (Routine); Ordered 09/25/22 Ordered By: Clint Zavala [facility] VTE Deep Vein Thrombosis/Pulmonary Embolism Present on Admission: No
[2022-09-24 06:45] LABS: Basophils # (Auto) 0.04 K/mcL (0.00-0.30); Basophils % (Auto) 0.4 % (0.0-2.0); Eosinophils # (Auto) 0.29 K/mcL (0.00-0.70); Eosinophils % (Auto) 3.1 % (0.0-7.0); Hematocrit 34.8 % (40.1-51.0); Hemoglobin 11.8 g/dL (13.7-17.5); Lymphocytes # (Auto) 1.54 K/mcL (1.50-4.80); Lymphocytes % (Auto) 16.3 % (15.5-49.0); Mean Cell Volume 96.1 fL (80.0-100.0); Mean Corpuscular HGB Conc 33.9 g/dL (31.0-36.0); Mean Platelet Volume 10.1 fL (8.8-12.5); Monocytes # (Auto) 0.87 K/mcL (0.10-0.90); Monocytes % (Auto) 9.2 % (1.0-12.0); Neutrophils % (Auto) 70.7 % (38.0-78.0); Platelet Count 184 K/mcL (140-440); RBC 3.62 M/mcL (4.63-6.08); Red Cell Distribution Width 13.2 % (11.5-14.5); WBC 9.4 K/mcL (4.5-11.0)
[2022-09-24 07:21] LABS: ALT/SGPT 6 U/L (<40); AST/SGOT 10 U/L (<40); Albumin 3.1 gm/dL (3.2-5.2); Albumin/Globulin Ratio 1.3 (1.0-2.3); Alkaline Phosphatase 76 U/L (39-117); Bilirubin,Direct < 0.2 mg/dL (0-0.3); Bilirubin,Total 0.3 mg/dL (0.1-1.0); Blood Urea Nitrogen 22 mg/dL (8-23); Calcium 7.8 mg/dL (8.6-10.4); Carbon Dioxide 24 mmol/L (22-30); Chloride 100 mmol/L (96-108); Globulin 2.4 gm/dL (2.2-3.7); Glomerular Filtration Rate 35; Glucose 140 mg/dL (70-105); Lactate Dehydrogenase 158 U/L (135-225); Phosphorous 2.1 mg/dL (2.5-4.5); Triglycerides 85 mg/dL (<150); Uric Acid 7.2 mg/dL (2.5-8.0)
--- NOTE | 2022-09-24 08:10 | Internal Med Progress Note ---
SUBJECTIVE Subjective Patient information: Note initiated : 09/24/22 at 8:07 am Service Date, if different from initiated Date: [] Patient: Raymond Darnell a 89 y/o M admitted on 09/22/22 for Dx with UTI today, fever of 102, agitation. Chief Complaint: [] Interval history: History of present illness: Mr. Darnell is a 89 year old M Presents to the ED with UTI fevers confusion. Per the she says he gets UTIs every so often end of the signs. He said he started having frequency strong smelling urine. She went to primary care doctor and got an antibiotic. This evening he became a bit more confused and aphasic. He does have a history of stroke and has since then has had trouble occasionally with word finding and also drooping of his left eyelid. He also has a history of seizure disorder but those are gone away since he started using BiPAP at night for sleep apnea. His reports he has a mild chronic cough and has a little bit more of 1 recently but has been having some sinus congestion. Denies shortness of breath. He has had some cognitive decline especially since he was in and out of hospitals for 4 months at 1 point. In the ED was febrile mildly tachycardic. He had a leukocytosis. He had a lactate of 3.8 as well as a sodium of 125. Had a recent echo which was good. In the ED started on IV fluids and antibiotics. Patient dipped to 89% oxygen at ond point in the ED so put on O2. Chest x-ray no obvious focal. I put him on room air while I talked with him and his and his oxygen saturation remained 94-95%. 09/23 Patient sitting up in chair eating breakfast. Seems to be feeling a little bit better. Leukocytosis slightly improved. Hyponatremia noted. at bedside. Pending urine and blood cultures. 09/24 Patient seems to be doing well. Alert and awake. at bedside. Urine cultures are gram-negative bacillus pending final identification. Leukocytosis resolved. Hyponatremia present but better. Patient complaining of leg cramps. Review of Systems: denies headache/fever/chills/nausea/vomiting/chest or abdominal pain/cough/dyspnea/diarrhea. Otherwise see above. Constitutional Vitals: Vital Signs Temp Pulse Resp BP Pulse Ox O2 Del Method O2 Flow Rate 98.2 F 65 19 146/74 93 BiPAP 0 09/24/22 04:01 09/24/22 06:54 09/24/22 06:54 09/24/22 06:01 09/24/22 06:54 09/24/22 04:01 09/24/22 04:01 Period Temp Pulse Resp BP Sys/Gale Pulse Ox O2 Del Method O2 Flow Rate Last 24 Hr 97.5 F-99.1 F 58-94 12-23 88-259/36-239 93-98 BiPAP-Room Air 0-15 Intake and Output 09/23/22 09/24/22 09/24/22 19:59 03:59 11:59 Intake Total 420 Output Total 1 2 Balance 419 -2 Weight 88.088 kg Intake & Output: Intake & Output 09/23/22 09/24/22 09/24/22 19:59 03:59 11:59 Intake Total 420 Output Total 1 2 Balance 419 -2 Weight 88.088 kg Intake: Oral 420 Output: # of times incontinent of urine 1 2 Other: Meal Dinner Percent of Meal Consumed 100% Feeding Ability Assist with Tray Set Up Stool Size Moderate Moderate Stool Color Brown Brown Stool Consistency Loose Soft # Bowel Movements 0 # of times incontinent of 1 1 Bowels Exam: General: Awake, No acute Distress Eyes/N/T: EOMI, Head/Neck: neck supple, CV: RRR, No murmurs, Pulm: Clear b/l, no wheezing/rhonchi/rales Abd: soft, nontender, +BS x4 Ext: no clubbing/cyanosis, mild b/l LE edema Neuro: Alert, moves all extremities, answering questions appropriately. Skin: warm/dry OBJ DATA Labs 09/24/22 05:15 09/24/22 05:15 Labs: Abnormal Lab Results 09/24/22 09/24/22 09/23/22 05:15 05:15 05:00 WBC RBC 3.62 L Hgb 11.8 L Hct 34.8 L Neut % (Auto) Lymph % (Auto) [place] # (Auto) Immature Gran # Absolute Neutrophils VBG Lactic Acid POC Sodium Sodium 132 L 130 L POC Chloride Chloride Carbon Dioxide 21 L POC BUN BUN 26 H Creatinine 1.7 H 1.8 H POC Creatinine Glucose 140 H 117 H POC Glucose Calcium 7.8 L 7.6 L POC WB Ioniz Calcium Phosphorus 2.1 L 2.4 L Total Bilirubin GGT 7 L Total Protein 5.5 L 5.3 L Albumin 3.1 L 3.0 L Urine Appearance Urine Occult Blood Ur Leukocyte Esterase Urine RBC Urine WBC Urine Bacteria 09/23/22 09/22/22 09/22/22 05:00 22:45 20:31 WBC 12.9 H RBC 3.63 L Hgb 12.0 L Hct 35.2 L Neut % (Auto) Lymph % (Auto) [place] # (Auto) 1.24 H Immature Gran # 0.06 H Absolute Neutrophils 9.13 H VBG Lactic Acid POC Sodium 131 L Sodium POC Chloride 95 L Chloride Carbon Dioxide POC BUN 29 H BUN Creatinine POC Creatinine 2.0 H Glucose POC Glucose 130 H Calcium POC WB Ioniz Calcium 1.11 L Phosphorus Total Bilirubin GGT Total Protein Albumin Urine Appearance Sl cloudy A Urine Occult Blood Moderate A Ur Leukocyte Esterase Trace A Urine RBC 5 H Urine WBC 27 H Urine Bacteria Mod A 09/22/22 09/22/22 09/22/22 20:30 20:30 20:29 WBC 15.2 H RBC 4.43 L Hgb Hct Neut % (Auto) 86.1 H Lymph % (Auto) 10.0 L [place] # (Auto) Immature Gran # Absolute Neutrophils 13.07 H VBG Lactic Acid 3.8 H POC Sodium Sodium 125 L POC Chloride Chloride 88 L Carbon Dioxide POC BUN BUN 26 H Creatinine 1.8 H POC Creatinine Glucose 125 H POC Glucose Calcium POC WB Ioniz Calcium Phosphorus Total Bilirubin 1.1 H GGT Total Protein Albumin Urine Appearance Urine Occult Blood Ur Leukocyte Esterase Urine RBC Urine WBC Urine Bacteria Meds: Medications Acetaminophen (Acetaminophen 325 Mg Tablet) 650 mg PO Q6HP PRN; Protocol PRN Reason: Per Pain Protocol/Fever > 101 Last Admin: 09/23/22 18:57 Dose: 650 mg Albuterol/Ipratropium (Ipratropium/Albuterol 3 Ml Ampul.Neb) 3 ml NEB Q4HP PRN PRN Reason: Shortness Of Breath Aspirin (Aspirin 81 Mg Tab.Chew) 81 mg PO QDAY [facility] Last Admin: 09/23/22 09:09 Dose: 81 mg Ceftriaxone Sodium (Ceftriaxone 1 Gm Vial) 1 gm IV Q24H [facility] Last Admin: 09/23/22 09:09 Dose: 1 gm Docusate Sodium (Docusate Sodium 100 Mg Capsule) 100 mg PO BID [facility] Last Admin: 09/23/22 20:17 Dose: Not Given Famotidine (Famotidine 20 Mg Tablet) 20 mg PO HS [facility] Magnesium Sulfate (Magnesium Sulfate) 2 gm in 50 mls @ 50 mls/hr IV UD PRN PRN Reason: Magnesium </= 1.6 Potassium Chloride 40 meq/ (Dextrose) 520 mls @ 130 mls/hr IV UD PRN PRN Reason: Potassium < 3 Lorazepam (Lorazepam 0.5 Mg Tablet) 0.5 mg PO DAILYP PRN PRN Reason: Agitation Melatonin (Melatonin 3 Mg Tablet) 9 mg PO HSP PRN PRN Reason: Insomnia Last Admin: 09/23/22 20:17 Dose: 9 mg Metoprolol Tartrate (Metoprolol Tartrate 5 Mg/5 Ml Vial) 5 mg IV Q2HP PRN PRN Reason: Tachyarrhythmias HR>110 Ondansetron HCl (Ondansetron 4 Mg/2 Ml Vial) 4 mg IV Q4HP PRN PRN Reason: Nausea And Vomiting Last Admin: 09/23/22 19:17 Dose: 4 mg Paroxetine HCl (Paroxetine 20 Mg Tablet) 10 mg PO QDAY [facility] Last Admin: 09/23/22 09:10 Dose: 10 mg Polyethylene Glycol (Polyethylene Glycol 3350 17 Gm Packet) 17 gm PO DAILYP PRN PRN Reason: Constipation Polyethylene Glycol (Polyethylene Glycol 3350 17 Gm Packet) 8.5 gm PO QDAY [facility] Potassium Chloride (Potassium Chloride 20 Meq Tablet) 40 meq PO UD PRN PRN Reason: Potassium < 3 Potassium Chloride (Potassium Chloride 20 Meq Tablet) 40 meq PO UD PRN PRN Reason: Potssium is 3-3.5 Rivaroxaban (Rivaroxaban 15 Mg Tablet) 15 mg PO DAILY@1700 [facility] Last Admin: 09/23/22 17:37 Dose: 15 mg Senna (Sennosides 1 Tablet) 2 tab PO DAILYP PRN PRN Reason: Constipation Sodium Chloride (0.9 % Sodium Chloride 10 Ml Syringe) 10 ml IV Q8 [facility] Last Admin: 09/23/22 20:18 Dose: 10 ml Tamsulosin HCl (Tamsulosin 0.4 Mg Capsule) 0.4 mg PO QDAY [facility] Last Admin: 09/23/22 09:09 Dose: 0.4 mg A/P Narrative A/P Narrative: A: *UTI(GNB), complicated: *Sepsis: improved -last fever evening of 09/22, leukocytosis resolved *Encephalopathy: 2/2 above, improving *Hyperlactatemia: resolved *Hyponatremia/Hypophos: replete phos *Sleep apnea: On BiPAP *h/o Sz d/o: *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 *HTN: *h/o CVA with residual mild expressive aphasia: *Anxiety/depression: *GERD: P: -IV antibiotics, pending BC/UC -IVF d/c -Monitor I&O and urine output, fluid balance -Follow-up CBC and chemistry including trending sodium and replete e- and trend -Avoid nephrotoxic medications -Continue home BiPAP qhs -cont home asa -hold home BB/ARB for soft BP, hold hctz for hypontremia -PT/OT -CM for placement needs -ppx: xaralto / home H2 DNR/DNI Time Spent With Patient Time: Total time spent is greater than 50% in coordination of care (as documented) at patient's floor/unit and/or counseling patient: Subsequent: Total time with patient: 35 - 49 minutes [facility] VTE Deep Vein Thrombosis/Pulmonary Embolism Present on Admission: No
[2022-09-24] MEDS: POLYETHYLENE GLYCOL 3350 17 GM PACKET PO SCH (08:28)
[2022-09-24] MEDS: ASPIRIN 81 MG TAB.CHEW PO SCH (09:11)
[2022-09-24] MEDS: cefTRIAXone 1 GM VIAL IV SCH (09:11)
[2022-09-24] MEDS: PHOSPHORUS 250 MG TABLET PO SCH ×3 (09:11→20:23)
[2022-09-24] MEDS: PARoxetine 20 MG TABLET PO SCH (09:11)
[2022-09-24] MEDS: TAMSULOSIN 0.4 MG CAPSULE PO SCH (09:12)
[2022-09-24] MEDS: 0.9 % SODIUM CHLORIDE 10 ML SYRINGE IV SCH ×3 (09:12→20:25)
[2022-09-24] MEDS: DOCUSATE SODIUM 100 MG CAPSULE PO SCH ×2 (10:55→20:24)
[2022-09-24] MEDS ORDERED: METHOCARBAMOL 1,000 MG/10 ML VIAL IV SCH (14:23)
[2022-09-24] MEDS: RIVAROXABAN 15 MG TABLET PO SCH (16:51)
[2022-09-24] MEDS ORDERED: FAMOTIDINE 20 MG TABLET PO SCH (21:00)
[2022-09-24] MEDS ORDERED: diphenhydrAMINE 25 MG CAPSULE PO SCH (21:00)
[2022-09-24] MEDS ORDERED: MELATONIN 3 MG TABLET PO SCH (21:00)
[2022-09-25] MEDS: 0.9 % SODIUM CHLORIDE 10 ML SYRINGE IV SCH (05:14)
[2022-09-25] MEDS: cefTRIAXone 1 GM VIAL IV SCH (08:42)
[2022-09-25] MEDS: DOCUSATE SODIUM 100 MG CAPSULE PO SCH (08:42)
[2022-09-25] MEDS: PARoxetine 20 MG TABLET PO SCH (08:42)
[2022-09-25] MEDS: TAMSULOSIN 0.4 MG CAPSULE PO SCH (08:42)
[2022-09-25] MEDS: POLYETHYLENE GLYCOL 3350 17 GM PACKET PO SCH (08:42)
[2022-09-25] MEDS: ASPIRIN 81 MG TAB.CHEW PO SCH (08:42)
[2022-09-25 10:24] LABS: ALT/SGPT 7 U/L (<40); AST/SGOT 10 U/L (<40); Albumin 3.1 gm/dL (3.2-5.2); Albumin/Globulin Ratio 1.2 (1.0-2.3); Alkaline Phosphatase 63 U/L (39-117); Bilirubin,Direct < 0.2 mg/dL (0-0.3); Bilirubin,Total 0.3 mg/dL (0.1-1.0); Blood Urea Nitrogen 19 mg/dL (8-23); Calcium 8.1 mg/dL (8.6-10.4); Carbon Dioxide 25 mmol/L (22-30); Chloride 103 mmol/L (96-108); Globulin 2.6 gm/dL (2.2-3.7); Glomerular Filtration Rate 40; Glucose 125 mg/dL (70-105); Lactate Dehydrogenase 147 U/L (135-225); Phosphorous 2.9 mg/dL (2.5-4.5); Triglycerides 85 mg/dL (<150); Uric Acid 7.1 mg/dL (2.5-8.0)
--- NOTE | 2022-09-26 07:21 | EKG ---
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
== END 2022-09-25 12:43 | disposition home health service (06) | DRG 871 ==
LOC: ED 20:16 → ICU 23:25
PROVIDERS: ADMIT Internal Medicine; ATTEND Internal Medicine